=== PATIENT | female | born 1960 | race Caucasian/White ===

== ENCOUNTER → 2016-05-11 | Outpatient (CLI) | payer OTHER ==
--- NOTE | 2016-05-11 10:54 | MM ---
Reason for exam: screening (asymptomatic). Last mammogram was performed 1 year and 1 month ago. History: Patient is postmenopausal. Family history of breast cancer in maternal cousin at age 50, breast cancer in maternal aunt, and breast cancer in aunt. Taking estrogen for 6 years. Physical Findings: A clinical breast exam by your physician is recommended on an annual basis and results should be correlated with mammographic findings. MG 3D Screening Mammo W/Cad Bilateral CC and MLO view(s) were taken. Prior study comparison: March 31, 2015, bilateral MG 3d screening mammo w/cad. January 11, 2014, bilateral MG screening mammo w CAD. There are scattered fibroglandular densities. Finding: There are typically benign vascular calcifications in both breasts. Previous mammotome biopsy in the right breast. There is no discrete abnormality. ASSESSMENT: Benign, BI-RAD 2 RECOMMENDATION: Routine screening mammogram of both breasts in 1 year.
== END | disposition home or self-care (01) ==
LOC: RADMAMWWP 07:20
PROVIDERS: ATTEND Obstetrics & Gynecology
DX: Z12.31 Encounter for screening mammogram for malignant neoplasm of breast (principal)
CPT/HCPCS: 77063; G0202

== ENCOUNTER → 2016-07-09 | Outpatient (CLI) | payer OTHER ==
[2016-07-09 12:27] LABS: ALT 33 U/L (9-52); AST 34 U/L (14-36); Alkaline Phosphatase 64 U/L (38-126); Anion Gap 7 mmol/L; Blood Urea Nitrogen 20 mg/dL (7-17); Calcium 9.5 mg/dL (8.4-10.2); Carbon Dioxide 28 mmol/L (22-30); Chloride 104 mmol/L (98-107); Glucose 82 mg/dL (74-99); Magnesium 1.9 mg/dL (1.6-2.3); Non-African American GFR(MDRD) 56 (>60 ml/min/1.73 sqM); Phosphorous 3.5 mg/dL (2.5-4.5); Potassium 3.7 mmol/L (3.5-5.1); Sodium 139 mmol/L (137-145); Total Bilirubin 0.9 mg/dL (0.2-1.3); Total Protein 6.5 g/dL (6.3-8.2); Uric Acid 5.4 mg/dL (3.7-7.4)
== END ==
LOC: LABWHC1 11:14
PROVIDERS: ATTEND Internal Medicine
DX: N18.3 Chronic kidney disease, stage 3 (moderate) (principal); D64.9 Anemia, unspecified; E83.39 Other disorders of phosphorus metabolism; E55.9 Vitamin D deficiency, unspecified; M10.9 Gout, unspecified
CPT/HCPCS: 36415; 80053; 82306; 83735; 83970; 84100; 84550

== ENCOUNTER → 2016-12-27 | Outpatient (CLI) | payer OTHER ==
[2016-12-27 10:40] LABS: ALT 36 U/L (9-52); AST 28 U/L (14-36); Alkaline Phosphatase 108 U/L (38-126); Anion Gap 7 mmol/L; Blood Urea Nitrogen 13 mg/dL (7-17); Calcium 9.7 mg/dL (8.4-10.2); Carbon Dioxide 28 mmol/L (22-30); Chloride 104 mmol/L (98-107); Glucose 91 mg/dL (74-99); Magnesium 2.1 mg/dL (1.6-2.3); Non-African American GFR(MDRD) 58 (>60 ml/min/1.73 sqM); Phosphorus 3.3 mg/dL (2.5-4.5); Potassium 5.1 mmol/L (3.5-5.1); Sodium 139 mmol/L (137-145); Total Bilirubin 0.7 mg/dL (0.2-1.3); Total Protein 6.5 g/dL (6.3-8.2); Uric Acid 5.5 mg/dL (3.7-7.4)
== END | disposition home or self-care (01) ==
LOC: LABWHC1 09:47
PROVIDERS: ATTEND Internal Medicine
DX: N18.3 Chronic kidney disease, stage 3 (moderate) (principal); E21.3 Hyperparathyroidism, unspecified; E55.9 Vitamin D deficiency, unspecified; M10.9 Gout, unspecified
CPT/HCPCS: 36415; 80053; 82306; 83735; 83970; 84100; 84550

== ENCOUNTER → 2017-06-14 | Outpatient (CLI) | payer OTHER ==
--- NOTE | 2017-06-14 11:36 | BD ---
EXAMINATION TYPE: MG DEXA axial skeleton. DATE OF EXAM: 06/14/2017 COMPARISON: 2016 CLINICAL HISTORY: Osteoporosis screening. Postmenopausal female. Height: 5'7 Weight: 115 FRAX RISK QUESTIONS: Alcohol (3 or more units per day): no Family History (Parent hip fracture): no Glucocorticoids (More than 3mos): no (Ex: prednisone, prednisolone, methylprednisolone, dexamethasone, and hydrocortisone). History of Fracture in Adulthood: yes Secondary Osteoporosis: 1. Type 1 Diabetes: no 2. Hyperthyroidism: no 3. Menopause before 45: yes 4. Malnutrition: no 5. Chronic liver disease: no Rheumatoid Arthritis: no Current Tobacco Use: yes RISK FACTORS HISTORY OF: History of Wrist Fracture: left When: 21's age Surgery to /Hip(/left)/: total left hip When: 2017 Family History of Osteoporosis: y Diet low in dairy products/other sources of calcium: y Postmenopausal woman: y Take estrogen and/or progesterone medications: y How lon years MEDICATIONS: Additional Medications: asthma, cholesterol Additional History: EXAM MEASUREMENTS: Bone mineral densitometry was performed using the [employer]. Bone mineral density as measured about the Lumbar spine is: ----- L1-L4(G/cm2): 1.025 T Score Values are as follows: ----- L2: -1.9 ----- L3: -1.3 ----- L4: -1.0 ----- L1-L4: -1.3 Bone mineral density has: Decreased -1.9% since study of: 03/31/2015 Bone mineral density about the R hip (g/cm2): 0.812 T Score values are as follows: -----R Neck: -1.5 -----R Total: -1.3 Bone mineral density has: Increased 0.4% since study of: 03/31/2015 IMPRESSION: Osteopenia (T Score between -2.5 and -1). There is slightly increased risk of fracture and the patient may be considered for treatment. Re-Screen 2-5 years. NOTE: T-SCORE=SD OF THE YOUNG ADULT MEAN.
--- NOTE | 2017-06-15 12:49 | MM ---
Reason for exam: screening (asymptomatic). Last mammogram was performed 1 year and 1 month ago. History: Patient is postmenopausal. Family history of breast cancer in maternal cousin at age 50, breast cancer in maternal aunt, and breast cancer in aunt. Taking estrogen for 6 years. Physical Findings: A clinical breast exam by your physician is recommended on an annual basis and results should be correlated with mammographic findings. MG 3D Screening Mammo W/Cad Bilateral CC and MLO view(s) were taken. Prior study comparison: May 11, 2016, bilateral MG 3d screening mammo w/cad. March 31, 2015, bilateral MG 3d screening mammo w/cad. The breast tissue is heterogeneously dense. This may lower the sensitivity of mammography. Finding: There are typically benign vascular calcifications in both breasts. Previous mammotome biopsy in the right breast. There is no discrete abnormality. ASSESSMENT: Benign, BI-RAD 2 RECOMMENDATION: Routine screening mammogram of both breasts in 1 year.
== END | disposition home or self-care (01) ==
LOC: RADMAMWWP 09:35
PROVIDERS: ATTEND Obstetrics & Gynecology
DX: Z12.31 Encounter for screening mammogram for malignant neoplasm of breast (principal); M85.80 Other specified disorders of bone density and structure, unspecified site
CPT/HCPCS: 77063; 77067; 77080

== ENCOUNTER → 2017-06-24 | Outpatient (CLI) | payer OTHER ==
--- NOTE | 2017-06-24 08:28 | US ---
EXAMINATION TYPE: US extremity nonvasc mass LT DATE OF EXAM: 06/24/2017 COMPARISON: NONE CLINICAL HISTORY: M25.552 Pain in left pain. Patient had hip replacement 01-17-17 Since surgery she has a large area over her hip that is swollen and painful, no redness. There is a very small amount of fluid and edematous tissue. IMPRESSION: At the site of clinical concern left hip there is a small amount of fluid and edematous soft tissue.
== END ==
LOC: RADUSWWP 07:38
PROVIDERS: ATTEND Orthopaedic Surgery
DX: M79.89 Other specified soft tissue disorders (principal)

== ENCOUNTER 2017-07-11 09:09 | Day surgery (SDC) | payer OTHER ==
[2017-07-11 09:26] VITALS: BP 104/67; PULSE 66; RESP 20; TEMP 97.7
[2017-07-11] MEDS ORDERED: ALPRAZolam 0.5 MG TAB PO STA (09:26)
--- NOTE | 2017-07-11 11:36 | US ---
Ultrasound guided left hip aspiration Date: 07/11/2017 History: 56-year-old female with recurrent painful swelling lateral left hip after total arthroplasty . Procedure: 1. Ultrasound of the left hip soft tissues at the site of swelling. 2. Ultrasound-guided fluid aspiration. Technique: The procedure, risks, and alternatives, were discussed with the patient, who requested linda t we proceed. The consent form was signed, and teach-back occurred. The site/side of the procedure wa s marked with a line with participation by the patient. The accompanying paperwork was verified for c onsistency. A directed history and physical exam was performed prior to the procedure. Medication rec onciliation was performed by ancillary personnel. A critical pause was performed with assisting denny nava just prior to the procedure and the patient's identity was confirmed using 2 identifiers. Imagin g guidance was utilized to select the precise skin entry point just prior to the procedure, lateral l eft hip. FINDINGS: There is fluid measuring up to 4.5 cm long and 1.2 cm thick along the lateral facet of the greater tr ochanter. A sliver of fluid also seen within the subcutaneous fat more superficial in location in the deep subcutaneous fat. PROCEDURE: The patient was placed right decubitus. The lateral left hip was exposed, prepped and draped in the u sual sterile fashion and local 1% lidocaine anesthesia was instilled. Under ultrasound guidance, a 20 -gauge spinal needle was introduced into the left lateral fluid pocket. Ultrasound confirmed the posi tion of the needle tip. Under ultrasound surveillance, all of the fluid was aspirated yielding 5 mL o f serosanguineous aspirate. The needle was then removed. The patient tolerated the procedure well. There were no immediate complications. After the procedure, the patient's condition was unchanged. Es timated blood loss was minimal. IMPRESSION: 1. Successful aspiration of fluid pocket along the lateral left hip. The fluid pocket overlies the la teral facet of the left greater trochanter. 5 ml of serosanguineous aspirate was obtained and sent fo laboratory assessment. 2. Consider the possibility of a tear of the lateral insertional gluteus medius tendon.
[2017-07-11 14:35] LABS: Appearance,BF Bloody; Color,BF Red; Nucleated Cells, Body Fluid 222 /uL; RBC, Body Fluid 35300 /uL
[2017-07-11 14:42] LABS: Mononuclear WBC,Body Fluid 82 %; Polynuclear WBC,Body Fluid 18 %; Total Cells Counted,Body Fluid 100
== END 2017-07-11 11:00 | disposition home or self-care (01) ==
LOC: RADPROMAIN 09:09
PROVIDERS: ATTEND Orthopaedic Surgery
DX: M70.62 Trochanteric bursitis, left hip (principal); M25.452 Effusion, left hip; Z96.642 Presence of left artificial hip joint
CPT/HCPCS: 20611; 76942; 87070; 87075; 87205; 89050

== ENCOUNTER → 2017-07-14 | Outpatient (CLI) | payer OTHER ==
[2017-07-14 11:57] LABS: Appearance,Urine Clear (Clear); Bilirubin,Urine Negative (Negative); Blood,Urine Negative (Negative); Color,Urine Yellow; Glucose,Urine (UA) Negative (Negative); Ketones,Urine Negative (Negative); Leukocyte Esterase,Urine Negative (Negative); Nitrite,Urine Negative (Negative); PH, Urine 5.5 (5.0-8.0); Protein,Urine Negative (Negative); Specific Gravity,Urine 1.016 (1.001-1.035); Urobilinogen,Urine <2.0 mg/dL (<2.0)
[2017-07-14 11:59] LABS: HCT 36.4 % (34.0-46.0); HGB 11.7 gm/dL (11.4-16.0); MCH 31.2 pg (25.0-35.0); MCHC 32.1 g/dL (31.0-37.0); MCV 97.2 fL (80.0-100.0); Mean Platelet Volume 7.1; Platelet Count 240 k/uL (150-450); RBC 3.75 m/uL (3.80-5.40); RDW 13.6 % (11.5-15.5); WBC 4.8 k/uL (3.8-10.6)
[2017-07-14 12:32] LABS: Calcium 9.7 mg/dL (8.4-10.2); Magnesium 2.1 mg/dL (1.6-2.3); Phosphorus 3.4 mg/dL (2.5-4.5); Potassium 4.2 mmol/L (3.5-5.1); Total Bilirubin 0.7 mg/dL (0.2-1.3); Total Protein 6.1 g/dL (6.3-8.2); Uric Acid 4.2 mg/dL (3.7-7.4)
[2017-07-14 16:08] LABS: Iron Saturation 31.33 (12.00-45.00)
[2017-07-14 16:53] LABS: Parathyroid Hormone Intact 84.9 pg/mL (14.0-72.0)
== END | disposition home or self-care (01) ==
LOC: LABWHC1 11:30
PROVIDERS: ATTEND Internal Medicine
DX: N18.3 Chronic kidney disease, stage 3 (moderate) (principal); E21.3 Hyperparathyroidism, unspecified; E55.9 Vitamin D deficiency, unspecified; M10.9 Gout, unspecified; R80.9 Proteinuria, unspecified
CPT/HCPCS: 36415; 80053; 81003; 82306; 82728; 83540; 83550; 83735; 83970; 84100; 84550; 85027

== ENCOUNTER → 2018-02-06 | Outpatient (CLI) | payer OTHER ==
[2018-02-06 10:50] LABS: Basophils % (A) 0 %; Eosinophils % (A) 0 %; HCT 40.3 % (34.0-46.0); HGB 13.2 gm/dL (11.4-16.0); Lymphocytes # (A) 1.2 k/uL (1.0-4.8); Lymphocytes % (A) 25 %; MCH 32.9 pg (25.0-35.0); MCHC 32.8 g/dL (31.0-37.0); MCV 100.4 fL (80.0-100.0); Mean Platelet Volume 6.8; Monocytes # (A) 0.3 k/uL (0-1.0); Monocytes % (A) 5 %; Neutrophils # (A) 3.3 k/uL (1.3-7.7); Neutrophils % (A) 67 %; Platelet Count 249 k/uL (150-450); RBC 4.02 m/uL (3.80-5.40); RDW 12.2 % (11.5-15.5); WBC 4.9 k/uL (3.8-10.6)
[2018-02-06 13:18] LABS: Erythrocyte Sedimentation Rate 5 mm/hr (0-20)
[2018-02-06 16:44] LABS: Vitamin D 25 Hydroxy 35.5 ng/mL (30.0-100.0)
[2018-02-06 17:14] LABS: ALT 23 U/L (8-44); AST 32 U/L (13-35); Albumin/Globulin Ratio 2.65 (1.20-2.10); Alkaline Phosphatase 88 U/L (41-126); C Reactive Protein <0.4 mg/dL (0.0-0.8); Calcium 9.6 mg/dL (8.7-10.3); Carbon Dioxide 26.4 mmol/L (21.6-31.8); Chloride 106 mmol/L (96-109); Globulin 1.7 g/dL (2.1-3.7); Glucose 87 mg/dL (70-110); Sodium 141 mmol/L (135-145); Total Bilirubin 0.5 mg/dL (0.3-1.2); Total Protein 6.2 g/dL (6.2-8.2)
[2018-02-07 13:18] LABS: ANA Pattern See Footnote
== END | disposition home or self-care (01) ==
LOC: LABWHC1 09:54
PROVIDERS: ATTEND Nurse Practitioner Acute Care
DX: R53.83 Other fatigue (principal); E55.9 Vitamin D deficiency, unspecified; D64.9 Anemia, unspecified; E03.9 Hypothyroidism, unspecified
CPT/HCPCS: 36415; 80053; 82306; 82607; 84207; 84439; 84443; 84481; 85025; 85652; 86038; 86039; 86140

== ENCOUNTER → 2018-06-06 | Outpatient (CLI) | payer OTHER ==
[2018-06-06 12:53] LABS: Basophils % (A) 1 %; Eosinophils % (A) 1 %; HCT 41.1 % (34.0-46.0); HGB 13.2 gm/dL (11.4-16.0); Lymphocytes # (A) 1.1 k/uL (1.0-4.8); Lymphocytes % (A) 36 %; MCH 32.3 pg (25.0-35.0); MCV 101.1 fL (80.0-100.0); Mean Platelet Volume 6.8; Monocytes # (A) 0.2 k/uL (0-1.0); Monocytes % (A) 7 %; Neutrophils # (A) 1.7 k/uL (1.3-7.7); Neutrophils % (A) 54 %; Platelet Count 269 k/uL (150-450); RBC 4.07 m/uL (3.80-5.40); RDW 12.2 % (11.5-15.5); WBC 3.1 k/uL (3.8-10.6)
[2018-06-06 19:41] LABS: Iron Saturation 26.15 (12.00-45.00)
[2018-06-06 19:49] LABS: Vitamin D 25 Hydroxy 33.1 ng/mL (30.0-100.0)
[2018-06-06 19:55] LABS: Albumin 4.4 g/dL (3.80-4.90); Albumin/Globulin Ratio 2.32 (1.60-3.17); Anion Gap 6.9 mmol/L (4.00-12.00); Calcium 9.6 mg/dL (8.7-10.3); Carbon Dioxide 28.1 mmol/L (21.6-31.8); Globulin 1.9 g/dL (1.6-3.3); Magnesium 1.9 mg/dL (1.5-2.4); Phosphorus 3.8 mg/dL (2.4-5.1); Potassium 5.3 mmol/L (3.5-5.5); Total Bilirubin 0.4 mg/dL (0.3-1.2); Total Protein 6.3 g/dL (6.2-8.2); Uric Acid 4.6 mg/dL (2.9-7.7)
[2018-06-06 21:19] LABS: Parathyroid Hormone Intact 80.1 pg/mL (14.0-72.0)
== END | disposition home or self-care (01) ==
LOC: LABWHC1 11:33
PROVIDERS: ATTEND Nurse Practitioner Family
DX: L82.1 Other seborrheic keratosis (principal); D69.2 Other nonthrombocytopenic purpura; N18.3 Chronic kidney disease, stage 3 (moderate); D63.1 Anemia in chronic kidney disease; N25.81 Secondary hyperparathyroidism of renal origin; E55.9 Vitamin D deficiency, unspecified; M10.9 Gout, unspecified
CPT/HCPCS: 36415; 80053; 82306; 82728; 83540; 83550; 83735; 83970; 84100; 84550; 85025

== ENCOUNTER → 2018-06-28 | Outpatient (CLI) | payer OTHER ==
[2018-06-28 22:20] LABS: Albumin 4.4 g/dL (3.80-4.90); Albumin/Globulin Ratio 2.75 (1.60-3.17); Anion Gap 5.8 mmol/L (4.00-12.00); Calcium 9.6 mg/dL (8.7-10.3); Carbon Dioxide 30.2 mmol/L (21.6-31.8); Globulin 1.6 g/dL (1.6-3.3); Potassium 4.4 mmol/L (3.5-5.5); Total Bilirubin 0.6 mg/dL (0.2-1.2)
== END | disposition home or self-care (01) ==
LOC: LABWHC1 13:23
PROVIDERS: ATTEND Nurse Practitioner Family
DX: N18.3 Chronic kidney disease, stage 3 (moderate) (principal)
CPT/HCPCS: 36415; 80053

== ENCOUNTER → 2018-07-27 | Outpatient (CLI) | payer OTHER ==
--- NOTE | 2018-07-28 12:39 | MM ---
Reason for exam: screening (asymptomatic). Last mammogram was performed 1 year and 1 month ago. History: Patient is postmenopausal. Family history of breast cancer in maternal cousin at age 50, breast cancer in maternal aunt, and breast cancer in aunt. Taking estrogen for 7 years. Physical Findings: A clinical breast exam by your physician is recommended on an annual basis and results should be correlated with mammographic findings. MG 3D Screening Mammo W/Cad Bilateral CC and MLO view(s) were taken. Prior study comparison: June 14, 2017, bilateral MG 3d screening mammo w/cad. May 11, 2016, bilateral MG 3d screening mammo w/cad. The breast tissue is heterogeneously dense. This may lower the sensitivity of mammography. Previous mammotome biopsy in the right breast. No significant changes when compared with prior studies. ASSESSMENT: Negative, BI-RAD 1 RECOMMENDATION: Routine screening mammogram of both breasts in 1 year.
== END | disposition home or self-care (01) ==
LOC: RADMAMWWP 09:06
PROVIDERS: ATTEND Obstetrics & Gynecology
DX: Z12.31 Encounter for screening mammogram for malignant neoplasm of breast (principal); Z80.3 Family history of malignant neoplasm of breast
CPT/HCPCS: 77063; 77067

== ENCOUNTER 2018-08-18 09:11 | Day surgery (SDC) | payer OTHER ==
[2018-08-16 14:53] VITALS: BMI 18.0
[~2018-08-18 09:11] MED LIST: LACTATED RINGERS 1,000 ML IV SCH
[2018-08-18 09:24] VITALS: TEMP 96.6
[2018-08-18] MEDS ORDERED: PROPOFOL 10 MG/ML 20 ML VIAL IV ONE (09:51)
[2018-08-18] MEDS ORDERED: LIDOCAINE 1% INJ 10MG/ML (20 ML MDV) ONE (09:51)
--- NOTE | 2018-08-18 10:10 | P.PCN ---
Date of Procedure: 08/18/18 Procedure(s) Performed: BRIEF HISTORY: Patient is a 58-year-old pleasant white female scheduled for an elective colonoscopy as a part of screening for colorectal neoplasia. PROCEDURE PERFORMED: Colonoscopy. PREOPERATIVE DIAGNOSIS: Screening for colon cancer. IV sedation per Anesthesia. PROCEDURE: After informed consent was obtained, the patient, was brought into the endoscopy unit. IV sedation was administered by Anesthesia under continuous monitoring. Digital rectal examination was normal. Initially the Olympus CF-160 flexible video colonoscope was then inserted in the rectum, gradually advanced into the cecum without any difficulty. Careful examination was performed as the scope was gradually being withdrawn. Ileocecal valve and the appendiceal orifice were visualized and appeared normal. Prep was excellent. Mucosa of the cecum, ascending colon, transverse colon, descending colon, sigmoid colon, and rectum appeared normal. Retroflexion was performed in the rectum and no lesions were seen. The patient tolerated the procedure well. IMPRESSION: Normal-appearing colon from rectum to cecum with no evidence of colorectal neoplasia. RECOMMENDATIONS: Findings of this examination were discussed with the patient as well as a family. She was advised to have a repeat screening colonoscopy in 10 years.
[2018-08-18 11:02] VITALS: BP 127/85; PULSE 72; RESP 16
== END 2018-08-18 10:58 | disposition home or self-care (01) ==
LOC: ORWHC2ENDO 09:11
PROVIDERS: ATTEND Internal Medicine Gastroenterology
DX: Z12.11 Encounter for screening for malignant neoplasm of colon (principal); Z79.890 Hormone replacement therapy; Z79.899 Other long term (current) drug therapy; E78.5 Hyperlipidemia, unspecified; J45.909 Unspecified asthma, uncomplicated; F17.200 Nicotine dependence, unspecified, uncomplicated; F39 Unspecified mood [affective] disorder
CPT/HCPCS: J2001; J2704; G0121

== ENCOUNTER → 2018-11-08 | Outpatient (CLI) | payer OTHER ==
[2018-11-08 11:15] LABS: HCT 37.2 % (34.0-46.0); HGB 12.2 gm/dL (11.4-16.0); MCH 34.9 pg (25.0-35.0); MCHC 32.7 g/dL (31.0-37.0); MCV 106.6 fL (80.0-100.0); Macrocytosis Moderate; Platelet Count 270 k/uL (150-450); RBC 3.49 m/uL (3.80-5.40); RDW 13.8 % (11.5-15.5); WBC 5.5 k/uL (3.8-10.6)
[2018-11-08 15:23] LABS: Vitamin D 25 Hydroxy 39.8 ng/mL (30.0-100.0)
[2018-11-08 15:46] LABS: Iron Saturation 41.08 (12.00-45.00)
[2018-11-08 16:26] LABS: Phosphorus 3.8 mg/dL (2.4-5.1)
[2018-11-08 16:27] LABS: African American GFR (CKD) 72.4 (60.0-200.0); Albumin 4.2 g/dL (3.80-4.90); Albumin/Globulin Ratio 2.47 (1.60-3.17); Calcium 9.4 mg/dL (8.7-10.3); Globulin 1.7 g/dL (1.6-3.3); Potassium 5.1 mmol/L (3.5-5.5); Total Bilirubin 0.5 mg/dL (0.3-1.2); Total Protein 5.9 g/dL (6.2-8.2); Uric Acid 4.3 mg/dL (2.9-7.7)
== END | disposition home or self-care (01) ==
LOC: LABWHC1 10:32
PROVIDERS: ATTEND Nurse Practitioner Family
DX: N25.81 Secondary hyperparathyroidism of renal origin (principal); E55.9 Vitamin D deficiency, unspecified; M10.9 Gout, unspecified; D63.1 Anemia in chronic kidney disease; N18.3 Chronic kidney disease, stage 3 (moderate)
CPT/HCPCS: 36415; 80053; 82306; 82728; 83540; 83550; 83735; 83970; 84100; 84550; 85027

== ENCOUNTER → 2018-11-30 | Outpatient (CLI) | payer OTHER ==
--- NOTE | 2018-11-30 10:03 | US ---
EXAMINATION TYPE: US kidneys/renal and bladder DATE OF EXAM: 11/30/2018 COMPARISON: US 2014, CT 2018 CLINICAL HISTORY: N18.3 STAGE III CKD. EXAM MEASUREMENTS: Right Kidney: 10.3 x 4.4 x 3.5 cm Left Kidney: 10.1 x 4.7 x 4.0 cm Post Void Residual Volume: 6.6 mL Right Kidney: No hydronephrosis or masses seen Left Kidney: No hydronephrosis or masses seen Bladder: wnl Bilateral Jets seen: Yes Normal Post Void Residual: Yes Bilateral cortical renal thinning is seen. This is greater on the right than left. There is no eviden ce for hydronephrosis at this point in time. No nephrolithiasis is seen. No masses are identified. The urinary bladder is anechoic. Bilateral ureteral jets are seen. Sub optimal visualization due to very thin body habitus. IMPRESSION: Cortical renal thinning, sequela of chronic medical renal disease greater on the right than left. No hydronephrosis or nephrolithiasis of either kidney.
== END | disposition home or self-care (01) ==
LOC: RADUSWWP 09:27
PROVIDERS: ATTEND Internal Medicine Nephrology
DX: N28.89 Other specified disorders of kidney and ureter (principal); N18.3 Chronic kidney disease, stage 3 (moderate)
CPT/HCPCS: 76770

== ENCOUNTER 2018-12-25 11:05 | Emergency (ER) | payer OTHER ==
[2018-12-25] MEDS ORDERED: IPRATROPIUM-ALBUTEROL 3 ML NEB INHALATION STA (11:31)
--- NOTE | 2018-12-25 11:33 | ED ---
URI HPI - General Chief Complaint: Upper Respiratory Infection Stated Complaint: fever/cough Time Seen by Provider: 12/25/18 11:19 Source: patient, RN notes reviewed Mode of arrival: ambulatory Limitations: no limitations - History of Present Illness Initial Comments: 58-year-old female presents emergency Department chief complaint cough congestion prescriptions Tuesday. Patient states that he shape progressively gets worsen. She has been taken Tylenol for suspected fever at home. Patient also was taken some NyQuil. Patient does have underlying asthma states that she does hear large amount of respiratory infection secondary to underlying lung disease. Patient does see Dr. Reed. Patient unable to see him in his office. She has not used her nebulizer. Denies any chest pain or palpitations. - Related Data Home Medications Medication Instructions Recorded Confirmed Atorvastatin [Lipitor] 20 mg PO HS 06/30/17 12/25/18 DULoxetine HCL [Cymbalta] 60 mg PO DAILY 06/30/17 12/25/18 Montelukast Sodium [Singulair] 10 mg PO HS 06/30/17 12/25/18 Calcitriol [Rocaltrol] 0.25 mcg PO MOTH 08/16/18 12/25/18 Folic Acid 0.4 mg PO DAILY 08/16/18 12/25/18 Acetaminophen Tab [Tylenol Tab] 1,000 mg PO Q6HR PRN 12/25/18 12/25/18 Estradiol 0.5 mg PO DAILY 12/25/18 12/25/18 Meloxicam [Mobic] 7.5 mg PO DAILY 12/25/18 12/25/18 Previous Rx's Medication Instructions Recorded Albuterol Nebulized [Ventolin 2.5 mg INHALATION Q4H PRN #25 nebu 12/25/18 Nebulized] Azithromycin [Zithromax Z-pack] 0 mg PO DIRECTED #1 pack 12/25/18 predniSONE 50 mg PO DAILY #5 tab 12/25/18 Allergies Allergy/AdvReac Type Severity Reaction Status Date / Time No Known Allergies Allergy Verified 12/25/18 11:26 Review of Systems ROS Statement: Those systems with pertinent positive or pertinent negative responses have been documented in the HPI. ROS Other: All systems not noted in ROS Statement are negative. Past Medical History Past Medical History: Asthma, Hyperlipidemia, Osteoarthritis (OA) Additional Past Medical History / Comment(s): Hx osteopenia/ Hx. and at present adrenal insufficiency, neuropathy History of Any Multi-Drug Resistant Organisms: MRSA Date of last positivie culture/infection: 2013 and rsv pneumonia/ chronic bronchitis MDRO Source:: lungs Past Surgical History: Breast Surgery, Hysterectomy, Joint Replacement, Orthopedic Surgery Additional Past Surgical History / Comment(s): Hx. bilat arthroscopic knees x 2 left hip repair x 2, and left shoulder Hx. breast biopsy rt and lumpectomy- negative, LT BURTON, COLONOSCOPY Past Anesthesia/Blood Transfusion Reactions: Postoperative Nausea & Vomiting (PONV) Past Psychological History: No Psychological Hx Reported Smoking Status: Current some day smoker Past Alcohol Use History: Occasional Past Drug Use History: None Reported - Past Family History Father Family Medical History: Cancer General Exam Limitations: no limitations General appearance: alert, in no apparent distress Head exam: Present: atraumatic, normocephalic, normal inspection Eye exam: Present: normal appearance, PERRL, EOMI. Absent: scleral icterus, conjunctival injection, periorbital swelling ENT exam: Present: normal exam, normal oropharynx, mucous membranes moist, TM's normal bilaterally Neck exam: Present: normal inspection. Absent: tenderness, meningismus, lymphadenopathy Respiratory exam: Present: wheezes, rhonchi. Absent: normal lung sounds bilaterally, respiratory distress, rales, stridor Cardiovascular Exam: Present: regular rate, normal rhythm, normal heart sounds. Absent: systolic murmur, diastolic murmur, rubs, gallop, clicks Neurological exam: Present: alert Skin exam: Present: warm, dry, intact, normal color. Absent: rash Course Vital Signs 12/25/18 12/25/18 12/25/18 11:07 12:26 12:36 Temperature 97.9 F Pulse Rate 92 92 88 Respiratory 18 Rate Blood Pressure 126/86 O2 Sat by Pulse 100 Oximetry 12/25/18 12:42 Temperature 99.1 F Pulse Rate 89 Respiratory 22 Rate Blood Pressure 110/84 O2 Sat by Pulse 100 Oximetry Medical Decision Making - Medical Decision Making 58-year-old female presented emergency 5 for fever cough congestion. Chest x- ray shows possible bronchitis. There is no evidence pneumonia informed negative. Patient feels comfortable discharged with antibiotics, steroids and albuterol use. Patient follow-up with her own oncologist Dr. Cabezas return parameters were discussed. - Lab Data Lab Results 12/25/18 Range/Units 12:35 Influenza Type A RNA Not Detected (Not Detectd) Influenza Type B (PCR) Not Detected (Not Detectd) Disposition Clinical Impression: Bronchitis Disposition: HOME SELF-CARE Condition: Stable Instructions (If sedation given, give patient instructions): Upper Respiratory Infection (ED) Additional Instructions: Please return to the Emergency Department if symptoms worsen or any other concerns. Prescriptions: predniSONE 50 mg PO DAILY #5 tab Albuterol Nebulized [Ventolin Nebulized] 2.5 mg INHALATION Q4H PRN #25 nebu PRN Reason: difficulty in breathing Azithromycin [Zithromax Z-pack] 0 mg PO DIRECTED #1 pack Is patient prescribed a controlled substance at d/c from ED?: No Referrals: Dolly Holguin DO [Primary Care Provider] - 1-2 days Time of Disposition: 13:13
--- NOTE | 2018-12-25 11:59 | XR ---
EXAMINATION TYPE: XR chest 2V DATE OF EXAM: 12/25/2018 COMPARISON: 05/17/2013 HISTORY: Cough TECHNIQUE: Frontal and lateral views of the chest are obtained. FINDINGS: There is no focal air space opacity, pleural effusion, or pneumothorax seen. There is pulm onary hyperinflation present. Very mild central peribronchial cuffing is seen comminuted from the alireza or The cardiac silhouette size is within normal limits. The osseous structures are intact. IMPRESSION: New peribronchial cuffing in the setting of underlying COPD. Infectious airway disease i s suspected such as bronchitis.
[2018-12-25] MEDS ORDERED: IBUPROFEN 600 MG TAB PO STA (13:28)
[2018-12-25] MEDS ORDERED: ACETAMINOPHEN TAB 325 MG TAB PO STA (13:28)
[2018-12-25 13:35] VITALS: BP 110/78; PULSE 88; RESP 20; TEMP 99
== END 2018-12-25 13:33 | disposition home or self-care (01) ==
LOC: EC 11:05
DX: J45.909 Unspecified asthma, uncomplicated (principal); E78.5 Hyperlipidemia, unspecified; M19.90 Unspecified osteoarthritis, unspecified site; G62.9 Polyneuropathy, unspecified; F17.200 Nicotine dependence, unspecified, uncomplicated; Z86.14 Personal history of Methicillin resistant Staphylococcus aureus infection; Z87.01 Personal history of pneumonia (recurrent); Z90.710 Acquired absence of both cervix and uterus; Z96.642 Presence of left artificial hip joint; Z98.890 Other specified postprocedural states; Z79.1 Long term (current) use of non-steroidal anti-inflammatories (NSAID); Z79.899 Other long term (current) drug therapy
CPT/HCPCS: 71046; 87502; 94640; 99284

== ENCOUNTER → 2019-05-02 | Outpatient (CLI) | payer OTHER ==
[2019-05-02 13:21] LABS: Basophils # (A) 0.1 k/uL (0-0.2); Basophils % (A) 2 %; Eosinophils % (A) 1 %; HCT 41.4 % (34.0-46.0); HGB 13.1 gm/dL (11.4-16.0); Lymphocytes # (A) 1.3 k/uL (1.0-4.8); Lymphocytes % (A) 32 %; MCH 32.3 pg (25.0-35.0); MCHC 31.5 g/dL (31.0-37.0); MCV 102.4 fL (80.0-100.0); Mean Platelet Volume 8.1; Monocytes # (A) 0.3 k/uL (0-1.0); Monocytes % (A) 7 %; Neutrophils # (A) 2.3 k/uL (1.3-7.7); Neutrophils % (A) 57 %; Platelet Count 301 k/uL (150-450); RBC 4.05 m/uL (3.80-5.40); RDW 11.7 % (11.5-15.5)
[2019-05-02 13:26] LABS: Appearance,Urine Clear (Clear); Bilirubin,Urine Negative (Negative); Blood,Urine Negative (Negative); Color,Urine Yellow; Glucose,Urine (UA) Negative (Negative); Ketones,Urine Negative (Negative); Leukocyte Esterase,Urine Negative (Negative); Nitrite,Urine Negative (Negative); Protein,Urine Negative (Negative); Specific Gravity,Urine 1.021 (1.001-1.035); Urobilinogen,Urine <2.0 mg/dL (<2.0)
[2019-05-02 18:56] LABS: Ferritin 29.7 ng/mL (10.0-291.0)
[2019-05-02 19:22] LABS: % Iron Saturation 19.94 (12.00-45.00); African American GFR (CKD) 82.3 (60.0-200.0); Albumin 4.4 g/dL (3.80-4.90); Albumin/Globulin Ratio 2.44 (1.60-3.17); Anion Gap 11.1 mmol/L (4.00-12.00); Calcium 9.4 mg/dL (8.7-10.3); Carbon Dioxide 24.9 mmol/L (21.6-31.8); Globulin 1.8 g/dL (1.6-3.3); Magnesium 1.8 mg/dL (1.5-2.4); Phosphorus 4.3 mg/dL (2.4-5.1); Potassium 4.7 mmol/L (3.5-5.5); Total Bilirubin 0.3 mg/dL (0.2-1.2); Total Protein 6.2 g/dL (6.2-8.2); Uric Acid 3.4 mg/dL (2.9-7.7)
== END | disposition home or self-care (01) ==
LOC: LABWHC1 11:57
PROVIDERS: ATTEND Nurse Practitioner Family
DX: N18.3 Chronic kidney disease, stage 3 (moderate) (principal); D63.1 Anemia in chronic kidney disease; M10.9 Gout, unspecified; N39.0 Urinary tract infection, site not specified; N25.81 Secondary hyperparathyroidism of renal origin
CPT/HCPCS: 36415; 80053; 81003; 82306; 82728; 83540; 83550; 83735; 83970; 84100; 84550; 85025

== ENCOUNTER → 2019-09-07 | Outpatient (CLI) | payer OTHER ==
[2019-09-07 12:49] LABS: Appearance,Urine Clear (Clear); Bilirubin,Urine Negative (Negative); Blood,Urine Negative (Negative); Color,Urine Yellow; Glucose,Urine (UA) Negative (Negative); Ketones,Urine 1+ (Negative); Leukocyte Esterase,Urine Negative (Negative); Nitrite,Urine Negative (Negative); PH, Urine 5.5 (5.0-8.0); Protein,Urine Trace (Negative)
[2019-09-07 12:57] LABS: Basophils % (A) 1 %; Eosinophils # (A) 0.1 k/uL (0-0.7); Eosinophils % (A) 1 %; HCT 38.2 % (34.0-46.0); HGB 12.2 gm/dL (11.4-16.0); Lymphocytes # (A) 1.2 k/uL (1.0-4.8); Lymphocytes % (A) 27 %; MCH 32.6 pg (25.0-35.0); MCV 101.8 fL (80.0-100.0); Mean Platelet Volume 7.5; Monocytes # (A) 0.3 k/uL (0-1.0); Monocytes % (A) 6 %; Neutrophils # (A) 2.8 k/uL (1.3-7.7); Neutrophils % (A) 64 %; Platelet Count 222 k/uL (150-450); RBC 3.75 m/uL (3.80-5.40); RDW 12.3 % (11.5-15.5); WBC 4.4 k/uL (3.8-10.6)
[2019-09-07 18:48] LABS: % Iron Saturation 27.76 (12.00-45.00); African American GFR (CKD) 47.9 (60.0-200.0); Albumin 4.3 g/dL (3.80-4.90); Albumin/Globulin Ratio 2.39 (1.60-3.17); Anion Gap 9.2 mmol/L (4.00-12.00); BUN/Creat Ratio 12.14 Ratio (12.00-20.00); Calcium 9.7 mg/dL (8.7-10.3); Carbon Dioxide 24.8 mmol/L (21.6-31.8); Globulin 1.8 g/dL (1.6-3.3); Magnesium 1.7 mg/dL (1.5-2.4); Non-African American GFR(CKD) 41.3 (60.0-200.0); Phosphorus 4.2 mg/dL (2.4-5.1); Potassium 4.5 mmol/L (3.5-5.5); Total Bilirubin 0.5 mg/dL (0.3-1.2); Total Protein 6.1 g/dL (6.2-8.2)
[2019-09-07 18:57] LABS: Ferritin 25.3 ng/mL (10.0-291.0)
== END | disposition home or self-care (01) ==
LOC: LABWHC1 11:53
PROVIDERS: ATTEND Nurse Practitioner Family
DX: N18.3 Chronic kidney disease, stage 3 (moderate) (principal); N39.0 Urinary tract infection, site not specified; M10.9 Gout, unspecified; D63.1 Anemia in chronic kidney disease
CPT/HCPCS: 36415; 80053; 81003; 82306; 82728; 83540; 83550; 83735; 83970; 84100; 84550; 85025

== ENCOUNTER → 2019-11-13 | Outpatient (CLI) | payer OTHER ==
[2019-11-13 12:41] LABS: HCT 38.7 % (34.0-46.0); HGB 12.2 gm/dL (11.4-16.0); MCH 32.4 pg (25.0-35.0); MCHC 31.4 g/dL (31.0-37.0); MCV 103.1 fL (80.0-100.0); Macrocytosis Slight; Mean Platelet Volume 7.3; Platelet Count 229 k/uL (150-450); RBC 3.75 m/uL (3.80-5.40); RDW 12.3 % (11.5-15.5); WBC 4.4 k/uL (3.8-10.6)
[2019-11-13 13:18] LABS: Creatinine,Urine Random 56.4 mg/dL; Protein/Creatinine Ratio,Urine 0.16
[2019-11-13 13:52] LABS: Appearance,Urine Clear (Clear); Bilirubin,Urine Negative (Negative); Blood,Urine Negative (Negative); Color,Urine Yellow; Glucose,Urine (UA) Negative (Negative); Ketones,Urine Negative (Negative); Leukocyte Esterase,Urine Negative (Negative); Nitrite,Urine Negative (Negative); PH, Urine 5.5 (5.0-8.0); Protein,Urine Negative (Negative); Specific Gravity,Urine 1.009 (1.001-1.035); Urobilinogen,Urine <2.0 mg/dL (<2.0)
[2019-11-13 18:16] LABS: % Iron Saturation 39.81 (12.00-45.00); Magnesium 1.6 mg/dL (1.5-2.4); Phosphorus 3.7 mg/dL (2.4-5.1); Uric Acid 5.1 mg/dL (2.9-7.7)
[2019-11-13 18:24] LABS: Ferritin 34.8 ng/mL (10.0-291.0)
== END | disposition home or self-care (01) ==
LOC: LABWHC1 11:05
PROVIDERS: ATTEND Internal Medicine
DX: D63.1 Anemia in chronic kidney disease (principal); N18.3 Chronic kidney disease, stage 3 (moderate); E55.9 Vitamin D deficiency, unspecified; M10.9 Gout, unspecified; R80.9 Proteinuria, unspecified; N39.0 Urinary tract infection, site not specified; N25.81 Secondary hyperparathyroidism of renal origin
CPT/HCPCS: 36415; 81003; 82306; 82570; 82728; 83540; 83550; 83735; 83970; 84100; 84156; 84550; 85027

== ENCOUNTER → 2019-11-20 | Outpatient (CLI) | payer OTHER ==
[2019-11-20 17:15] LABS: African American GFR (CKD) 71.9 (60.0-200.0); Anion Gap 7.1 mmol/L (4.00-12.00); Calcium 9.5 mg/dL (8.7-10.3); Carbon Dioxide 28.9 mmol/L (21.6-31.8); Non-African American GFR(CKD) 62.1 (60.0-200.0)
== END | disposition home or self-care (01) ==
LOC: LABWHC1 09:15
PROVIDERS: ATTEND Internal Medicine
DX: N18.3 Chronic kidney disease, stage 3 (moderate) (principal)
CPT/HCPCS: 36415; 80048

== ENCOUNTER → 2019-12-07 | Outpatient (CLI) | payer OTHER ==
--- NOTE | 2019-12-07 13:01 | BD ---
EXAMINATION TYPE: Axial Bone Density DATE OF EXAM: 12/07/2019 COMPARISON: 06.14.2017 CLINICAL HISTORY: 59 YR OLD FEMALE......ICD-10 CODE: N85.80 DISORDER OF BONE DENSITY Height: 66.3 Weight: 125 FRAX RISK QUESTIONS: Family History (Parent hip fracture): Glucocorticoids (More than 3mos): YES (Ex: prednisone, prednisolone, methylprednisolone, dexamethasone, and hydrocortisone). History of Fracture in Adulthood: YES Secondary Osteoporosis: YES 1 3. Menopause before 45: YES, AT 41 Current Tobacco Use: YES RISK FACTORS HISTORY OF: History of Wrist Fracture: LT WRIST FX YOUNG ADULT....BILT CARPAL GÓMEZ SURG. HX OF MANY METATARSAL FX AND RT FOOT FX...>40 YRS OLD Family History of Osteoporosis: YES, MOTHER NO HIP FX Active: YES Postmenopausal woman: SLICK, AT 41 YRS OLD Take estrogen and/or progesterone medications: YES, ESTRADIOL, Lost more than 2 inches in height since high school: YES Hyperparathyroidism: NO Adrenal Insufficiency: YES, IN THE PAST, MAJOR DOSES OF STEROIDS MEDICATIONS: Prednisone or other steroids: IN THE PAST MAJOR DOSE, ON AND OFF NOW Additional Medications: STATIN FOR CHOLESTEROL, VIT D, Additional History: SPINAL ABLATION, FOR NERVES, BILAT CARPAL TUNNEL, BILAT THUMB REPLACEMENTS, STAGE 3 KIDNEY DISEASE, ASTHMA....LT HIP REPLACEMENT EXAM MEASUREMENTS: Bone mineral densitometry was performed using the [employer]. Bone mineral density as measured about the Lumbar spine is: ----- L1-L4(G/cm2): 1.047 T Score Values are as follows: ----- L1: -0.9 ----- L2: -1.9 ----- L3: -1.4 ----- L4: -0.5 ----- L1-L4: -1.1 Bone mineral density has: Increased 1.4% since study of: 06.14.2017 Bone mineral density about the R hip (g/cm2): 0.823 T Score values are as follows: -----R Neck: -1.3 -----R Total: -1.5 Bone mineral density has: Decreased -2.0% since study of: 06.14.2017 FRAX%s: THERE IS A 17.2% CHANCE FOR A MAJOR OSTEOPOROTIC FX AND A 2.7% FOR HIP....PROBABILITY FOR F X IN 10 YRS TIME IMPRESSION: Osteopenia (T Score between -2.5 and -1). There is slightly increased risk of fracture and the patient may be considered for treatment. Re-Screen 2-5 years. NOTE: T-SCORE=SD OF THE YOUNG ADULT MEAN.
--- NOTE | 2019-12-10 09:30 | MM ---
Reason for exam: screening (asymptomatic). Last mammogram was performed 1 year and 4 months ago. History: Patient is postmenopausal. Family history of breast cancer in maternal cousin at age 50, breast cancer in maternal aunt, and breast cancer in aunt. Benign excisional biopsy of the right breast, 2006. Taking estrogen for 7 years. Physical Findings: A clinical breast exam by your physician is recommended on an annual basis and results should be correlated with mammographic findings. MG 3D Screening Mammo W/Cad Bilateral CC and MLO view(s) were taken. Prior study comparison: July 27, 2018, bilateral MG 3d screening mammo w/cad. June 14, 2017, bilateral MG 3d screening mammo w/cad. The breast tissue is heterogeneously dense. This may lower the sensitivity of mammography. There are benign appearing vascular calcifications bilaterally. Previous mammotome biopsy in the right breast. There is no discrete abnormality. ASSESSMENT: Benign, BI-RAD 2 RECOMMENDATION: Routine screening mammogram of both breasts in 1 year.
== END | disposition home or self-care (01) ==
LOC: RADMAMWWP 07:30
PROVIDERS: ATTEND Obstetrics & Gynecology
DX: Z12.31 Encounter for screening mammogram for malignant neoplasm of breast (principal); M85.80 Other specified disorders of bone density and structure, unspecified site
CPT/HCPCS: 77063; 77067; 77080

== ENCOUNTER → 2019-12-31 | Outpatient (CLI) | payer OTHER ==
--- NOTE | 2019-12-31 11:30 | US ---
EXAMINATION TYPE: US kidneys/renal and bladder DATE OF EXAM: 12/31/2019 COMPARISON: Ultrasound 11/30/2018 CLINICAL HISTORY: N18.3 CKD. Stage 3 EXAM MEASUREMENTS: Right Kidney: 10.7 x 5.2 x 3.3 cm Left Kidney: 9.1 x 5.0 x 4.3 cm Post Void Residual Volume: 7.3 mL Right Kidney: mid lateral hypoechoic lesion = 0.5 x 0.7 x 0.5cm Left Kidney: vascular wall calcifications note especially upper pole Bladder: partially distended Bilateral Jets seen: no, only left jet was seen within 3 minute observation. Normal Post Void Residual: yes No hydronephrosis or nephrolithiasis. Cortical thickness is stable from prior exam. IMPRESSION: 1. No hydronephrosis or nephrolithiasis. Hypodensity within the right kidney is too small to characte ridennis but statistically most likely related to a cyst.
== END | disposition home or self-care (01) ==
LOC: RADUSWWP 09:04
PROVIDERS: ATTEND Internal Medicine Nephrology
DX: N18.3 Chronic kidney disease, stage 3 (moderate) (principal)
CPT/HCPCS: 76770

== ENCOUNTER 2020-05-24 22:22 | Emergency (ER) | payer OTHER ==
[2020-05-24 22:27] VITALS: BP 137/82; PULSE 74; RESP 20; TEMP 98
--- NOTE | 2020-05-24 23:43 | XR ---
EXAMINATION TYPE: XR lumbar spine 1V DATE OF EXAM: 05/24/2020 COMPARISON: NONE HISTORY: Fall. Pain. TECHNIQUE: Single view FINDINGS: A single frontal view shows normal alignment of the vertebra. Disc spaces are fairly normal . I see no compression fracture. Sacroiliac joints are intact. IMPRESSION: Negative limited lumbar spine exam.
--- NOTE | 2020-05-24 23:44 | XR ---
EXAMINATION TYPE: XR chest 1V DATE OF EXAM: 05/24/2020 COMPARISON: December 27, 2018 HISTORY: Fall. Chest pain TECHNIQUE: FINDINGS: Heart and mediastinum are normal. Lungs are clear. There is no pleural effusion or pneumoth orax. The bony thorax is intact. IMPRESSION: Normal chest. No change.
--- NOTE | 2020-05-24 23:47 | XR ---
EXAMINATION TYPE: XR pelvis AP view DATE OF EXAM: 05/24/2020 COMPARISON: NONE HISTORY: Pain TECHNIQUE: Fall. Pain. FINDINGS: Pelvic ring is intact. The proximal right femur and hip joint are intact. There is left hip prosthesis in good position. Sacroiliac joints are intact. IMPRESSION: Negative exam. No fracture seen.
--- NOTE | 2020-05-24 23:54 | CT ---
EXAMINATION TYPE: CT brain [place] wo con DATE OF EXAM: 05/24/2020 COMPARISON: CT brain 11/28/2014. HISTORY: Fall CT DLP: 1094.5 mGycm Automated exposure control for dose reduction was used. Ventricles have normal size. There is no mass effect nor midline shift. There is no sign of intracran ial hemorrhage. The calvarium is intact. Skull base is intact. There is right frontal scalp soft tiss ue swelling. There is soft tissue swelling lateral to the right bony orbit. The cervical vertebra show fairly normal spacing and alignment. Posterior elements are intact. Facet joints are intact. There is minimal spurring at C5-6 endplates. The skull base is normal. There is no rmal aeration of the mastoid sinuses. IMPRESSION: Negative CT scan of the cervical spine. No fracture. Negative CT scan of the brain. Brain unchanged compared to old exam. Right side frontal and periorbital scalp soft tissue swelling.
[2020-05-24] MEDS ORDERED: IBUPROFEN 800 MG TAB PO STA (23:55)
[2020-05-24] MEDS ORDERED: ACET/COD 300 MG/30 MG STARTER PACK 6 TAB BTL PO STA (23:55)
[2020-05-24] MEDS ORDERED: Acetaminophen-Codeine 300-30mg TAB PO STA (23:55)
[2020-05-24] MEDS ORDERED: IBUPROFEN 600 MG STARTER PACK 4 TAB BTL PO STA (23:55)
--- NOTE | 2020-05-24 23:57 | CT ---
EXAMINATION TYPE: CT facial bones wo con DATE OF EXAM: 05/24/2020 COMPARISON: None HISTORY: Fall CT DLP: 1094.5 mGycm Automated exposure control for dose reduction was used. Images obtained from the bottom of the mandible to the top of the frontal sinuses without contrast. The mandibular ring is intact. Temporomandibular joints are intact. Zygomatic arches appear normal. T he maxilla is intact. There is normal appearing nasal bone. There is no evidence of retro-orbital mas s. There is normal aeration of the mastoid sinuses. There is no evidence of orbital blowout fracture. There is soft tissue swelling lateral to the right bony orbit. There is right frontal scalp soft tiss ue swelling. The globes are symmetric. I see no bony destructive process. IMPRESSION: No fracture. Right-sided soft tissue swelling as above.
--- NOTE | 2020-05-25 | ED ---
Fall HPI - General Chief Complaint: Fall Stated Complaint: Fall, head injury Time Seen by Provider: 05/24/20 22:35 Source: patient, RN notes reviewed, old records reviewed Mode of arrival: ambulatory - History of Present Illness Initial Comments: this is a 51-year-old female status post trip and fall but no significant trauma noted. Patient is no recent travel history or sick contacts. Patient believes fall was mechanical in nature with trip and fall, complaining of some headache no chest pain shortness of breath or abdominal pain currently. MD Complaint: fall -: hour(s) Fall From: standing When Fall Occurred: unsure Fall Witnessed: no Place Fall Occurred: home Loss of Consciousness: none Prolonged Down Time?: no Symptoms Prior to Fall: none Location: head Severity: moderate Severity scale (1-10): 5 Quality: burning Context: tripped/slipped Associated Symptoms: denies - Related Data Home Medications Medication Instructions Recorded Confirmed Atorvastatin [Lipitor] 20 mg PO HS 06/30/17 12/25/18 DULoxetine HCL [Cymbalta] 60 mg PO DAILY 06/30/17 12/25/18 Montelukast Sodium [Singulair] 10 mg PO HS 06/30/17 12/25/18 Folic Acid 0.4 mg PO DAILY 08/16/18 12/25/18 calcitrioL [Rocaltrol] 0.25 mcg PO MOTH 08/16/18 12/25/18 Acetaminophen Tab [Tylenol Tab] 1,000 mg PO Q6HR PRN 12/25/18 12/25/18 Estradiol 0.5 mg PO DAILY 12/25/18 12/25/18 Meloxicam [Mobic] 7.5 mg PO DAILY 12/25/18 12/25/18 Previous Rx's Medication Instructions Recorded Albuterol Nebulized [Ventolin 2.5 mg INHALATION Q4H PRN #25 nebu 12/25/18 Nebulized] Azithromycin [Zithromax Z-pack (6 0 mg PO DIRECTED #1 pack 12/25/18 tabs)] predniSONE 50 mg PO DAILY #5 tab 12/25/18 HYDROcodone/APAP 5-325MG [Johnston 1 tab PO Q6HR PRN 3 Days #12 tab 05/25/20 5-325] Allergies Allergy/AdvReac Type Severity Reaction Status Date / Time No Known Allergies Allergy Verified 05/24/20 22:27 Review of Systems ROS Statement: Those systems with pertinent positive or pertinent negative responses have been documented in the HPI. ROS Other: All systems not noted in ROS Statement are negative. Past Medical History Past Medical History: Asthma, Hyperlipidemia, Osteoarthritis (OA) Additional Past Medical History / Comment(s): Hx osteopenia/ Hx. and at present adrenal insufficiency, neuropathy History of Any Multi-Drug Resistant Organisms: MRSA Date of last positivie culture/infection: 2013 and rsv pneumonia/ chronic bronchitis MDRO Source:: lungs Past Surgical History: Breast Surgery, Hysterectomy, Joint Replacement, Orthopedic Surgery Additional Past Surgical History / Comment(s): Hx. bilat arthroscopic knees x 2 left hip repair x 2, and left shoulder Hx. breast biopsy rt and lumpectomy- negative, LT BURTON, COLONOSCOPY Past Anesthesia/Blood Transfusion Reactions: Postoperative Nausea & Vomiting (PONV) Past Psychological History: No Psychological Hx Reported Smoking Status: Current every day smoker Past Alcohol Use History: Occasional Past Drug Use History: None Reported - Past Family History Father Family Medical History: Cancer General Exam Limitations: no limitations General appearance: alert, in no apparent distress Head exam: Present: atraumatic, normocephalic, normal inspection Eye exam: Present: normal appearance, PERRL, EOMI. Absent: scleral icterus, conjunctival injection, periorbital swelling ENT exam: Present: normal exam, mucous membranes moist Neck exam: Present: normal inspection. Absent: tenderness, meningismus, lymphadenopathy Respiratory exam: Present: normal lung sounds bilaterally. Absent: respiratory distress, wheezes, rales, rhonchi, stridor Cardiovascular Exam: Present: regular rate, normal rhythm, normal heart sounds. Absent: systolic murmur, diastolic murmur, rubs, gallop, clicks GI/Abdominal exam: Present: soft, normal bowel sounds. Absent: distended, tenderness, guarding, rebound, rigid Extremities exam: Present: normal inspection, full ROM, normal capillary refill. Absent: tenderness, pedal edema, joint swelling, calf tenderness Back exam: Present: normal inspection Neurological exam: Present: alert, oriented X3, CN II-XII intact Psychiatric exam: Present: normal affect, normal mood Skin exam: Present: warm, dry, intact, normal color. Absent: rash Course Vital Signs 05/24/20 22:23 Temperature 98.0 F Pulse Rate 74 Respiratory 20 Rate Blood Pressure 137/82 O2 Sat by Pulse 98 Oximetry - Reevaluation(s) Reevaluation #1: Medical record is reviewed Patient symptoms are improved here in the ER Patient informed results and questions have been answered Patient family feel comfortable for discharge Medical Decision Making - Medical Decision Making 59 female status post fall patient does have CT brain C-spine negative for traumatic injury. Patient can be discharged home - Radiology Data Radiology results: report reviewed (CT brain C-spine and facial bones x-rays of chest and pelvis are negative for traumatic injury), image reviewed Disposition Clinical Impression: Fall, Head injury Disposition: HOME SELF-CARE Condition: Good Instructions (If sedation given, give patient instructions): Fall Prevention for Older Adults (ED), Head Injury (ED) Prescriptions: HYDROcodone/APAP 5-325MG [Johnston 5-325] 1 tab PO Q6HR PRN 3 Days #12 tab PRN Reason: Pain Is patient prescribed a controlled substance at d/c from ED?: No Referrals: Dolly Holguin DO [Primary Care Provider] - 1-2 days
== END 2020-05-25 00:43 | disposition home or self-care (01) ==
LOC: EC 22:22
DX: S09.90XA Unspecified injury of head, initial encounter (principal); E78.5 Hyperlipidemia, unspecified; M19.90 Unspecified osteoarthritis, unspecified site; F17.200 Nicotine dependence, unspecified, uncomplicated; Z79.899 Other long term (current) drug therapy; Z79.1 Long term (current) use of non-steroidal anti-inflammatories (NSAID); Z86.14 Personal history of Methicillin resistant Staphylococcus aureus infection; Z90.710 Acquired absence of both cervix and uterus; Z96.612 Presence of left artificial shoulder joint; W01.0XXA Fall on same level from slipping, tripping and stumbling without subsequent striking against object, initial encounter; Y92.89 Other specified places as the place of occurrence of the external cause
CPT/HCPCS: 70450; 70486; 71045; 72020; 72125; 72170; 99284

== ENCOUNTER → 2020-12-30 | Outpatient (CLI) | payer OTHER ==
--- NOTE | 2020-12-30 12:31 | MM ---
Reason for exam: screening (asymptomatic). Last mammogram was performed 1 year and 1 month ago. History: Patient is postmenopausal. Family history of breast cancer in maternal cousin at age 50, breast cancer in maternal aunt, and breast cancer in aunt. Benign excisional biopsy of the right breast, 2006. Took hormonal contraceptives for 20 years. Took estrogen for 7 years. Physical Findings: A clinical breast exam by your physician is recommended on an annual basis and results should be correlated with mammographic findings. MG 3D Screening Mammo W/Cad Bilateral CC and MLO view(s) were taken. Prior study comparison: December 07, 2019, bilateral MG 3d screening mammo w/cad. July 27, 2018, bilateral MG 3d screening mammo w/cad. June 14, 2017, bilateral MG 3d screening mammo w/cad. There are scattered fibroglandular densities. There are benign appearing vascular calcifications bilaterally. Previous mammotome biopsy in the right breast. There is no discrete abnormality. ASSESSMENT: Benign, BI-RAD 2 RECOMMENDATION: Routine screening mammogram of both breasts in 1 year. Consider surgical consultation of the right breast, nipple changes, may need punch biopsy. Manage on a clinical basis with regard to right nipple changes.
== END | disposition home or self-care (01) ==
LOC: RADMAMWWP 09:41
PROVIDERS: ATTEND Obstetrics & Gynecology
DX: Z12.31 Encounter for screening mammogram for malignant neoplasm of breast (principal); Z80.3 Family history of malignant neoplasm of breast
CPT/HCPCS: 77063; 77067

== ENCOUNTER 2021-07-17 08:09 | Day surgery (SDC) | payer OTHER ==
[2021-07-16 09:09] VITALS: BMI 20.7
[2021-07-17 08:37] VITALS: TEMP 97.9
[2021-07-17] MEDS ORDERED: LIDOCAINE 1% INJ 10MG/ML (20 ML MDV) ONE (08:59)
[2021-07-17] MEDS ORDERED: PROPOFOL 10 MG/ML 20 ML VIAL IV ONE (08:59)
--- NOTE | 2021-07-17 09:15 | P.PCN ---
Date of Procedure: 07/17/21 Procedure(s) Performed: BRIEF HISTORY: Patient is a 60-year-old pleasant white female scheduled for an elective colonoscopy as a part of evaluation of intermittent rectal bleeding for the last 6 months duration. She has bleeding 2-3 times a week. Denies any significant change in bowel habits. PROCEDURE PERFORMED: Colonoscopy. PREOPERATIVE DIAGNOSIS: Intermittent rectal bleeding of 6 months duration. IV sedation per Anesthesia. PROCEDURE: After informed consent was obtained, the patient, was brought into the endoscopy unit. IV sedation was administered by Anesthesia under continuous monitoring. Digital rectal examination was normal. Initially the Olympus CF-160 flexible video colonoscope was then inserted in the rectum, gradually advanced into the cecum without any difficulty. Careful examination was performed as the scope was gradually being withdrawn. Ileocecal valve and the appendiceal orifice were visualized and appeared normal. Prep was excellent. Mucosa of the cecum, ascending colon, transverse colon, descending colon, sigmoid colon, and rectum appeared normal. Retroflexion was performed in the rectum and small internal hemorrhoids were seen. The patient tolerated the procedure well. IMPRESSION: Normal-appearing colon from rectum to cecum no evidence of colorectal neoplasia. Small internal hemorrhoids. RECOMMENDATIONS: Findings of this examination were discussed with the patient as well as a family. She was advised to have a repeat screening colonoscopy in 10 years. Recommend a high-fiber diet and fiber supplements a regular basis and avoid straining and constipation..
[2021-07-17 09:40] VITALS: BP 111/72; PULSE 72; RESP 14
== END 2021-07-17 09:54 | disposition home or self-care (01) ==
LOC: ORWHC2ENDO 08:09
PROVIDERS: ATTEND Internal Medicine Gastroenterology
DX: K62.5 Hemorrhage of anus and rectum (principal); K64.8 Other hemorrhoids; J45.909 Unspecified asthma, uncomplicated; F17.200 Nicotine dependence, unspecified, uncomplicated; Z79.899 Other long term (current) drug therapy
CPT/HCPCS: 45378; J2001; J2704

== ENCOUNTER → 2021-09-03 | Outpatient (CLI) | payer OTHER ==
--- NOTE | 2021-09-03 10:04 | CT ---
EXAMINATION TYPE: CT chest w con DATE OF EXAM: 09/03/2021 COMPARISON: CT dated 06/08/2013 HISTORY: Shortness of Breath CT DLP: 142.9 mGycm Automated exposure control for dose reduction was used. TECHNIQUE: CT scan of the chest is performed with IV Contrast, patient injected with 70 mL of Isovue 300. FINDINGS: LUNGS: Mild bilateral apical pulmonary fibrotic changes. 3 mm nodule is seen in the right lung apex, stable. Other scattered smaller pulmonary nodules, all stable. Thin linear atelectasis seen in the ri ght lung base. Patent trachea and main bronchi. No pleural effusion. MEDIASTINUM: There are no greater than 1 cm hilar or mediastinal lymph nodes. No cardiomegaly. Patent major mediastinal vessels. No pericardial effusion is seen. OTHER: Grossly unremarkable upper abdomen. No aggressive bone lesion. IMPRESSION: Mild nonspecific pulmonary changes as described above. No suspicious lung lesion or signs of intersti tial lung disease. Incidental findings as described above.
== END | disposition home or self-care (01) ==
LOC: RADCTMAIN 07:48
PROVIDERS: ATTEND Family Medicine
DX: R06.02 Shortness of breath (principal)
CPT/HCPCS: 71260; Q9967

== ENCOUNTER → 2021-10-19 | Outpatient (CLI) | payer OTHER ==
--- NOTE | 2021-10-19 09:13 | CT ---
EXAMINATION TYPE: CT abdomen pelvis wo con DATE OF EXAM: 10/19/2021 COMPARISON: 02/06/2018 HISTORY: 61-year-old female Abdominal pain and bloating CT DLP: 736 mGycm. Automated exposure control for dose reduction was used. TECHNIQUE: Contiguous axial scanning of the abdomen and pelvis without IV contrast. Coronal and sagit patrick reconstructions performed. FINDINGS: Heart normal size without pericardial effusion. Strandy atelectasis anterior lung bases. No pleural e ffusion. Small hiatal hernia. Tiny 5 mm hypodensity right hepatic dome corresponding to a hypervascular focus on 2018 CT suggesting a flash filling hemangioma. Otherwise, noncontrast appearance of the liver, gallbladder, adrenal glands, kidneys, and spleen show no gross inability. Either prominent peripancreatic blood vessels are mild fat stranding about the body and tail of the p ancreas, axial image 16 and 18. No dilated small bowel, free fluid, or free air. No mesenteric or retroperitoneal lymphadenopathy. Normal appendix. Oral contrast progressed to the mid transverse colon. Mild left-sided colonic divert iculosis. Mild overall stool burden. No pericolonic inflammatory change. Bladder wall thickening. Uterus surgically absent. Ovaries not well seen, probably a small, postmenop ausal or surgically absent. This can be correlated clinically. No abnormal fluid collection in the pe lvis or pelvic lymphadenopathy. Bones: Left hip total arthroplasty. Degenerative grade 1 retrolisthesis L2-L5 levels. IMPRESSION: 1. There are either some prominent peripancreatic blood vessels versus mild inflammatory fat strandi ng. Correlate with amylase and lipase levels to exclude mild acute interstitial pancreatitis. 2. Small hiatal hernia. Some minimal left-sided clonic diverticulosis. Circumferential bladder wall thickening may be chronic for the patient. Correlate with symptoms and urinalysis to exclude cystitis .
== END | disposition home or self-care (01) ==
LOC: RADCTMAIN 06:59
PROVIDERS: ATTEND Family Medicine
DX: F10.10 Alcohol abuse, uncomplicated (principal); R79.89 Other specified abnormal findings of blood chemistry; K44.9 Diaphragmatic hernia without obstruction or gangrene; K57.30 Diverticulosis of large intestine without perforation or abscess without bleeding
CPT/HCPCS: 74176; Q9967

== ENCOUNTER → 2021-11-02 | Outpatient (CLI) | payer OTHER ==
--- NOTE | 2021-11-02 08:56 | CT ---
INDICATION: Patient age:Female; 61 years old; Reason for study: R91.8 OTHER NONSPECIFIC ABNORMAL FINDING OF LUNG; COMPARISON: CT chest 09/03/2021, CT abdomen pelvis 10/19/2021. TECHNIQUE: Multiple thin axial images were obtained through the chest at selected intervals. Prone and supine in spiratory images were submitted for review. Please note that due to interval acquisition images as de fined by high-resolution CT protocol the entire lung parenchyma is not evaluated, therefore small nod ular densities may not be visualized. Evaluation of vascular structures, viscera and lymphatics is l imited due to lack of intravenous contrast administration. One or more CT dose reduction strategies w ere utilized during this examination. Total DLP 369 mGycm. FINDINGS: LUNGS: Mild apical pleural-parenchymal scarring. There is no evidence of interstitial thickening, sig nificant groundglass opacity, honeycombing or architectural distortion in the lungs. No bronchiectasi s. No significant expiratory air trapping. No acute area of infiltrative or consolidative change. LARGE AIRWAYS: Central airways are patent. PLEURA: No pleural effusion or thickening. HEART AND PERICARDIUM: Heart is normal in size. There is no pericardial effusion. No significant ger nary artery calcifications. MEDIASTINUM AND DENIS: No mediastinal or hilar lymphadenopathy or soft tissue mass. VESSELS: The thoracic aorta is normal in course and caliber. CHEST WALL AND DIAPHRAGM: Normal. LOWER NECK: Normal. UPPER ABDOMEN: Unremarkable. MUSCULOSKELETAL: No acute fracture. IMPRESSION: No CT evidence of interstitial lung disease. No suspicious lung lesion.
== END | disposition home or self-care (01) ==
LOC: RADCTMAIN 07:58
PROVIDERS: ATTEND Internal Medicine Critical Care Medicine
DX: R91.8 Other nonspecific abnormal finding of lung field (principal)
CPT/HCPCS: 71250

== ENCOUNTER → 2021-12-24 | Outpatient (CLI) | payer OTHER ==
--- NOTE | 2021-12-24 11:16 | MR ---
EXAMINATION TYPE: MR lumbar spine wo con DATE OF EXAM: 12/24/2021 COMPARISON: 01/13/2016 HISTORY: Low back pain that radiates down left and right leg. TECHNIQUE: T1 and T2 axial and sagittal images of the lumbar spine are submitted. FINDINGS: There is no abnormal signal seen within the visualized spinal cord or paraspinal soft tissu es. At L1-2 there is no disc herniation or canal stenosis. No foraminal encroachment. Nerve root sleeve d iverticulum on the right incidentally noted. At L2-3 there is an annular tear now noted. No disc herniation or canal stenosis. No foraminal encroa chment. At L3-4 there is no disc herniation, canal stenosis or foraminal encroachment. Small bilateral nerve root sleeve diverticulum noted. Mild broad-based disc bulging. At L4-5 there is mild to moderate facet arthropathy. Mild bilateral neural foraminal encroachment gre ater on the left. Mild circumferential disc bulging but no canal stenosis. Bulging greater laterally to the left. At L5-S1 there is no disc herniation or canal stenosis. Broad-based central disc bulging. Bulging sli ghtly greater to left with mild foraminal encroachment. 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 IMPRESSION: 1. Disc bulging L5-S1 with no canal stenosis and mild left foraminal encroachment. Findings stable. 2. Mild bilateral foraminal encroachment. 3. Mild circumferential disc bulging L4-L5 with no nerve root impingement. Findings stable. 4. Mild central disc bulging L3-L4 is new from prior exam with minimal mass effect upon the thecal sa c but no evidence of canal stenosis..
== END | disposition home or self-care (01) ==
LOC: RADMRIMAIN 08:39
PROVIDERS: ATTEND Orthopaedic Surgery
DX: M54.16 Radiculopathy, lumbar region (principal)
CPT/HCPCS: 72148

== ENCOUNTER → 2021-12-31 | Outpatient (CLI) | payer OTHER ==
--- NOTE | 2021-12-31 15:50 | MM ---
Reason for Exam: Screening (asymptomatic). Last screening mammogram was performed 12 month(s) ago. Patient History: Menarche at age 13. First Full-Term at age 20. Hysterectomy at age 42. Postmenopausal. Patient used Estrogen for 7 years. Currently using Progesterone, for 6 months. Patient used Hormonal Contraceptives for 20 years. 2007, Benign Excisional Biopsy on the right side. Maternal cousin had breast cancer, age 50. Maternal aunt had breast cancer, age 60. Maternal aunt had breast cancer, age 55. Maternal cousin had breast cancer. Risk Values: Terri 5 year model risk: 1.2%. NCI Lifetime model risk: 6.3%. Prior Study Comparison: 07/27/2018 Bilateral Screening Mammogram, [facility]. 12/07/2019 Bilateral Screening Mammogram, [facility]. 12/30/2020 Bilateral Screening Mammogram, [facility]. Tissue Density: There are scattered fibroglandular densities. Findings: Analyzed By CAD. There is no suspicious group of microcalcifications or new suspicious mass in either breast. Biopsy clip demonstrated within the right breast. Vascular calcifications within both breasts. No significant change from prior examinations. Overall Assessment: Benign, BI-RAD 2 Management: Screening Mammogram of both breasts in 1 year. A clinical breast exam by your physician is recommended on an annual basis and results should be correlated with mammographic findings. Electronically signed and approved by: Kehinde Prater D.O.
== END | disposition home or self-care (01) ==
LOC: RADMAMWWP 09:37
PROVIDERS: ATTEND Obstetrics & Gynecology
DX: Z12.31 Encounter for screening mammogram for malignant neoplasm of breast (principal)
CPT/HCPCS: 77063; 77067

== ENCOUNTER → 2022-03-06 | Outpatient (CLI) | payer OTHER ==
--- NOTE | 2022-03-06 09:04 | CT ---
EXAMINATION TYPE: CT abdomen pelvis wo con DATE OF EXAM: 03/06/2022 COMPARISON: 10/19/2021 HISTORY: abd pain CT DLP: 316.6 mGycm Examination of the solid and hollow viscera is limited given the lack of contrast. FINDINGS: LUNG BASES: No evidence for nodule. No evidence for infiltrate. Small hiatal hernia noted. LIVER/GB: The gallbladder is unremarkable. No space-occupying hepatic lesion. PANCREAS: No pancreatic mass identified. No inflammatory process seen. SPLEEN: No evidence for splenomegaly. No intrasplenic lesions seen. ADRENALS: No adrenal nodules identified. No evidence for thickening. KIDNEYS: No evidence for renal mass. No nephrolithiasis. No hydronephrosis. BOWEL: Appendix has a normal appearance. No evidence of bowel obstruction. No inflammatory process. Lymph nodes: No evidence for adenopathy greater than 1 cm. Abdominal aorta: Atheromatous changes seen. No evidence for aneurysm. Genital organs: No significant abnormality. Other: Left hip prosthesis noted to be in place. IMPRESSION: 1. No significant abnormality to account for the patient's symptoms.
== END | disposition home or self-care (01) ==
LOC: RADCTMAIN 07:01
PROVIDERS: ATTEND Family Medicine
DX: K57.92 Diverticulitis of intestine, part unspecified, without perforation or abscess without bleeding (principal)
CPT/HCPCS: 74176

== ENCOUNTER → 2023-01-03 | Outpatient (CLI) | payer BC ==
--- NOTE | 2023-01-06 14:32 | MM ---
Reason for Exam: Screening (asymptomatic). Last screening mammogram was performed 12 month(s) ago. Patient History: Menarche at age 13. First Full-Term at age 20. Hysterectomy at age 42. Postmenopausal. Patient has history of breast feeding. Patient used Estrogen for 7 years. Currently using Progesterone, for 6 months. Patient used Hormonal Contraceptives for 20 years. 2006, Benign Excisional Biopsy on the right side. Maternal cousin had breast cancer, age 50. Maternal aunt had breast cancer, age 60. Maternal aunt had breast cancer, age 55. Maternal cousin had breast cancer. Risk Values: Terri 5 year model risk: 1.3%. NCI Lifetime model risk: 6.1%. Prior Study Comparison: 12/07/2019 Bilateral Screening Mammogram, [facility]. 12/30/2020 Bilateral Screening Mammogram, [facility]. 12/31/2021 Bilateral MG 3D screening mammo w/cad, [facility]. Tissue Density: The breast tissue is heterogeneously dense. This may lower the sensitivity of mammography. Findings: Analyzed By CAD. There is no suspicious group of microcalcifications or new suspicious mass in either breast. Benign calcifications within both breasts. Biopsy clip within the right breast. Overall Assessment: Benign, BI-RAD 2 Management: Screening Mammogram of both breasts in 1 year. A clinical breast exam by your physician is recommended on an annual basis and results should be correlated with mammographic findings. Note on Terri scores and lifetime risk: 1. A Terri score greater than 3% is considered moderate risk. If this is the case, consider specialist referral to assess eligibility for a risk reducing agent. If overall lifetime risk for the development of breast cancer is 20% or higher, the patient may qualify for future screening with alternating mammogram and breast MRI. Electronically signed and approved by: Kehinde Prater D.O.
== END | disposition home or self-care (01) ==
LOC: RADMAMWWP 09:35
PROVIDERS: ATTEND Family Medicine
DX: Z12.31 Encounter for screening mammogram for malignant neoplasm of breast (principal); Z78.0 Asymptomatic menopausal state; Z80.3 Family history of malignant neoplasm of breast
CPT/HCPCS: 77063; 77067

== ENCOUNTER → 2023-07-09 | Outpatient (CLI) | payer OTHER, BC ==
--- NOTE | 2023-07-09 13:16 | XR ---
EXAMINATION TYPE: XR lumbar spine with bend/flex DATE OF EXAM: 07/09/2023 8:28 AM CLINICAL INDICATION:Female, 62 years old with history of M47.26, M43.16 XR L SPINE; [facility] COMPARISON: 05/24/2020 TECHNIQUE: XR lumbar spine with bend/flex - Frontal, lateral and coned in L5-S1 lateral views of the spine. FINDINGS: Post surgical changes at L4 and L5. Hardware appears intact. No evidence of any acute osseo us pathology. No evidence of loss of vertebral body height is seen. There is normal alignment of the lumbar vertebral bodies. Mild scattered disc space narrowing. Multilevel marginal osteophyte formati on throughout the visualized spine. There is facet joint arthropathy throughout the spine. Scattered at least mild neural foraminal stenosis. IMPRESSION: 1. No acute fracture. 2. Mild multilevel disc degeneration. 3. Post surgical changes with hardware intact.
== END | disposition home or self-care (01) ==
LOC: RADXRMAIN 08:03
PROVIDERS: ATTEND Neurological Surgery
DX: M51.36 Other intervertebral disc degeneration, lumbar region (principal); M47.26 Other spondylosis with radiculopathy, lumbar region; M43.16 Spondylolisthesis, lumbar region
CPT/HCPCS: 72114

== ENCOUNTER → 2023-09-12 | Outpatient (CLI) | payer OTHER, BC ==
--- NOTE | 2023-09-12 15:42 | MR ---
EXAMINATION TYPE: MR marbin/titi wo con DATE OF EXAM: 09/12/2023 7:16 AM COMPARISON: 12/24/2021 HISTORY: Severe pain mid/lower back, recent injury. Hx surgery L4-L5. Multiplanar MultiSpin echo imaging of the thoracic spine was performed. Disc spaces: No evidence for herniation protrusion or significant degenerative disc disease. Spinal canal: No evidence for canal stenosis. No intrinsic or extrinsic lesion. Thoracic spinal cord: Thoracic spinal cord is of normal caliber and signal. Paraspinal soft tissues: No evidence for paraspinal mass. No destructive lesions seen. Vertebral segments: No evidence for fracture or bony lesion. IMPRESSION: Negative study EXAMINATION TYPE: MR marbin/titi wo con DATE OF EXAM: 09/12/2023 7:16 AM COMPARISON: NONE HISTORY: Severe pain mid/lower back, recent injury. Hx surgery L4-L5. Multiplanar, MultiSpin echo imaging of the lumbar spine was performed. L1-L2: Mild disc desiccation noted with mild posterior disc bulge. No herniation or protrusion. No ca nal stenosis is present. Foramina are patent bilaterally. L2-L3: Mild disc desiccation noted with mild posterior disc bulge. No herniation or protrusion. No ca nal stenosis is present. Foramina are patent bilaterally. L3-L4: Normal disc appearance without desiccation. No herniation, protrusion or disc bulging. No ca nal stenosis is present. Foramina are patent bilaterally. L4-L5: Postoperative changes of lumbar laminectomy and pedicular screws. Postoperative alignment is w ithin normal limits. L5-S1: Mild disc desiccation with posterior disc bulge. No evidence for disc herniation or protrusion . No central stenosis. No evidence for foraminal encroachment. Lumbar segments are intact. No paraspinal masses are identified. Conus medullaris has a normal appe arance. IMPRESSION: 1. Degenerative disc disease and disc bulging as noted. 2. Postoperative changes at L4-5.
== END | disposition home or self-care (01) ==
LOC: RADMRIMAIN 06:05
PROVIDERS: ATTEND Neurological Surgery
DX: M51.36 Other intervertebral disc degeneration, lumbar region (principal); M54.14 Radiculopathy, thoracic region
CPT/HCPCS: 72146; 72148

== ENCOUNTER → 2023-10-07 | Outpatient (CLI) | payer OTHER, BC ==
[2023-10-07 15:52] LABS: HCT 38.8 % (37.2-46.3); HGB 12.6 g/dL (12.0-15.0); MCH 31.3 pg (27.0-32.0); MCHC 32.5 g/dL (32.0-37.0); MCV 96.5 FL (80.0-97.0); Mean Platelet Volume 9.5 FL (9.5-12.2); NRBC Per 100 WBC 0 X 10*3/uL (0.00-0.01); Platelet Count 402 X 10*3/uL (140-440); RBC 4.02 X 10*6/uL (4.10-5.20); RDW 12.8 % (11.5-14.5); WBC 5.29 X 10*3/uL (4.50-10.00)
[2023-10-07 15:56] LABS: % Iron Saturation 26.85 (12.00-45.00); ALT 13 U/L (8-44); AST 20 U/L (13-35); Albumin 4.4 g/dL (3.8-4.9); Albumin/Globulin Ratio 1.76 Ratio (1.60-3.17); Alkaline Phosphatase 185 U/L (41-126); BUN/Creat Ratio 11.62 Ratio (12.00-20.00); Blood Urea Nitrogen 9.3 mg/dL (9.0-27.0); Calcium 9.5 mg/dL (8.7-10.3); Chloride 95 mmol/L (96-109); Ferritin 71.6 ng/mL (10.0-291.0); Globulin 2.5 g/dL (1.6-3.3); Glucose 78 mg/dL (70-110); Iron 105 UG/DL (50-170); Phosphorus 4.1 mg/dL (2.4-5.1); Potassium 4.7 mmol/L (3.5-5.5); Sodium 134 mmol/L (135-145); Total Bilirubin 0.3 mg/dL (0.3-1.2); Total Iron Binding Capacity 391 UG/DL (228-460); Total Protein 6.9 g/dL (6.2-8.2); Uric Acid 4.5 mg/dL (2.9-7.7)
== END | disposition home or self-care (01) ==
LOC: LABWHC1 10:11
PROVIDERS: ATTEND Internal Medicine
DX: N18.31 Chronic kidney disease, stage 3a (principal)
CPT/HCPCS: 36415; 80053; 82306; 82728; 83540; 83550; 83970; 84100; 84550; 85027

== ENCOUNTER → 2023-10-10 | Outpatient (CLI) | payer OTHER, BC ==
[2023-10-10 16:07] LABS: Appearance,Urine Clear (Clear); Bilirubin,Urine Negative (Negative); Blood,Urine Negative (Negative); Color,Urine Yellow (Yellow); Ketones,Urine Trace (Negative); Nitrite,Urine Negative (Negative); Specific Gravity,Urine 1.016 (1.001-1.030); Urobilinogen,Urine 0.2 E.U./DL
[2023-10-10 18:19] LABS: Microalbumin Creatinine Ratio <13 mg/g Cr (0-30); Urine Creatinine 90.1 mg/dL (28.0-217.0)
== END | disposition home or self-care (01) ==
LOC: LABWHC1 12:04
PROVIDERS: ATTEND Internal Medicine
DX: N18.31 Chronic kidney disease, stage 3a (principal)
CPT/HCPCS: 81003; 82043; 82570

== ENCOUNTER → 2024-01-05 | Outpatient (CLI) | payer OTHER, BC ==
--- NOTE | 2024-01-06 19:06 | MM ---
Reason for Exam: Screening (asymptomatic). Last screening mammogram was performed 12 month(s) ago. Patient History: Menarche at age 13. First Full-Term at age 20. Hysterectomy at age 42. Postmenopausal. Patient has history of breast feeding. Patient used Estrogen for 7 years. Currently using Progesterone, for 6 months. Patient used Hormonal Contraceptives for 20 years. 2006, Benign Excisional Biopsy on the right side. Maternal cousin had breast cancer, age 50. Maternal aunt had breast cancer, age 60. Maternal aunt had breast cancer, age 55. Maternal cousin had breast cancer. Risk Values: Terri 5 year model risk: 1.3%. NCI Lifetime model risk: 5.9%. Prior Study Comparison: 12/30/2020 Bilateral Screening Mammogram, [facility]. 12/31/2021 Bilateral MG 3D screening mammo w/cad, [facility]. 01/03/2023 Bilateral MG 3D screening mammo w/cad, [facility]. Tissue Density: There are scattered areas of fibroglandular density. Findings: Analyzed By CAD. Benign bilateral vascular calcifications. Microclip right breast from prior biopsy. Areas of asymmetric density remain unchanged. There is no suspicious group of microcalcifications or new suspicious mass in either breast. Overall Assessment: Benign, BI-RAD 2 Management: Screening Mammogram of both breasts in 1 year. . Patient should continue monthly self-breast exams. A clinical breast exam by your physician is recommended on an annual basis. This exam should not preclude additional follow-up of suspicious palpable abnormalities. Note on Terri scores and lifetime risk: 1. A Terri score greater than 3% is considered moderate risk. If this is the case, consider specialist referral to assess eligibility for a risk reducing agent. 2. If overall lifetime risk for the development of breast cancer is 20% or higher, the patient may qualify for future screening with alternating mammogram and breast MRI. [facility], , 01/06/2024 7:03 PM. Electronically signed and approved by: Dung Atkinson M.D. Radiologist
== END | disposition home or self-care (01) ==
LOC: RADMAMWWP 10:54
PROVIDERS: ATTEND Family Medicine
DX: Z12.31 Encounter for screening mammogram for malignant neoplasm of breast
CPT/HCPCS: 77063; 77067

== ENCOUNTER 2024-06-26 15:20 | Emergency (ER) | payer BC, MEDICARE, OTHER ==
[2024-06-26] MEDS: HYDROcodone/APAP 5-325MG 1 EACH TAB PO STA (16:11)
[2024-06-26] MEDS: ORPHENADRINE 30 MG/ML 2 ML VIAL IM STA (16:13)
--- NOTE | 2024-06-26 16:41 | ED ---
Back Pain HPI - General Chief Complaint: Back Pain/Injury Stated Complaint: Back Injury Time Seen by Provider: 06/26/24 16:41 Source: patient, family, RN notes reviewed Mode of arrival: ambulatory Limitations: no limitations - History of Present Illness Initial Comments: 63-year-old female presenting to the ER for evaluation of back pain. Patient states 1 week ago she was at the [employer] and recausticizing [employer] taking her dog for a checkup. She states she was attempting to pay the fee when her dog lunged at another dog and attempts to play. She states she felt a pop in her lower back at that time. Since then she has been having severe pain to her lumbar spine and bilateral flanks. Patient is taken [id number] ibuprofen and Tylenol without relief. Patient does report a history of L4-L5 lumbar fusion completed at [facility] with Dr. Kennedy. Patient was seen at urgent care and had x-rays completed showing an age-indeterminate L3 fracture. Patient was given IM dexamethasone and Toradol and sent to the emergency department for further evaluation and treatment. Patient denies any saddle paresthesias, bowel or bladder retention or incontinence, fevers or history of IV drug abuse. Patient does report a mild tingling sensation to bilateral hips. Patient denies any other injuries or complaints at this time. - Related Data Home Medications Medication Instructions Recorded Confirmed Atorvastatin [Lipitor] 20 mg PO HS 06/30/17 07/16/21 DULoxetine HCL [Cymbalta] 60 mg PO DAILY 06/30/17 07/16/21 Montelukast Sodium [Singulair] 10 mg PO HS 06/30/17 07/16/21 calcitrioL [Rocaltrol] 0.25 mcg PO MOWEFR 08/16/18 07/16/21 estradioL [Estradiol] 0.5 mg PO DAILY 12/25/18 07/16/21 Celecoxib [CeleBREX] 200 mg PO DAILY 07/16/21 07/16/21 Cholecalciferol [Vitamin D3 (25 50 mcg PO DAILY 07/16/21 07/16/21 Mcg = 1000 Iu)] Ibuprofen [Motrin] 800 mg PO Q8H PRN 07/16/21 07/16/21 Olodaterol HCl [Striverdi Respimat] 3 spray INHALATION DAILY 07/16/21 07/16/21 Progesterone, Micronized 100 mg PO HS 07/16/21 07/16/21 [Progesterone] Previous Rx's Medication Instructions Recorded Albuterol Nebulized [Ventolin 2.5 mg INHALATION Q4H PRN #25 nebu 12/25/18 Nebulized] HYDROcodone/APAP 7.5-325MG [[place] 1 tab PO Q4-6H PRN #12 tab 06/26/24 7.5-325] Lidocaine 4% Patch 1 patch TOPICAL DAILY #30 patch 06/26/24 Allergies Allergy/AdvReac Type Severity Reaction Status Date / Time No Known Allergies Allergy Verified 07/17/21 08:31 Review of Systems ROS Statement: Those systems with pertinent positive or pertinent negative responses have been documented in the HPI. ROS Other: All systems not noted in ROS Statement are negative. Past Medical History Past Medical History: Asthma, Hyperlipidemia, Musculoskeletal Disorder, Osteoarthritis (OA), Renal Disease Additional Past Medical History / Comment(s): Hx osteopenia. Stage 3 kidney disease. Hx adrenal insufficiency. Bulging discs in back; Neuropathy BLE, hands. Lymphedema legs occ. c/o rectal bleeding History of Any Multi-Drug Resistant Organisms: MRSA Date of last positivie culture/infection: 2013 and rsv pneumonia/ chronic bronchitis MDRO Source:: lungs Past Surgical History: Back Surgery, Breast Surgery, Hysterectomy, Joint Replacement, Orthopedic Surgery Additional Past Surgical History / Comment(s): Hx bilat arthroscopic knees x 2, left hip repair x 2, and left shoulder. Bilat thumbs replaced, & CTR. Hx breast biopsy rt and lumpectomy-negative, LT [place], Colonoscopy. spinal fusion Past Anesthesia/Blood Transfusion Reactions: Motion Sickness, Postoperative Nausea & Vomiting (PONV) Past Psychological History: No Psychological Hx Reported Smoking Status: Former smoker Past Alcohol Use History: Occasional Past Drug Use History: None Reported - Past Family History Father Family Medical History: Cancer Additional Family Medical History / Comment(s): prostate, lung cancers General Exam Limitations: no limitations General appearance: alert, in no apparent distress Neck exam: Present: normal inspection. Absent: tenderness, meningismus, lymphadenopathy Respiratory exam: Present: normal lung sounds bilaterally. Absent: respiratory distress, wheezes, rales, rhonchi, stridor Cardiovascular Exam: Present: regular rate, normal rhythm, normal heart sounds. Absent: systolic murmur, diastolic murmur, rubs, gallop, clicks Extremities exam: Present: normal inspection, full ROM, normal capillary refill (2+ DP and PT pulses), other (Strength: 5+ bilateral doriflexion/plantarflexion. 5+ hip adduction/abduction). Absent: tenderness, pedal edema, joint swelling, calf tenderness Back exam: Present: normal inspection, tenderness (L3-L5), other (limited active ROM given pain. Negative passive straight leg raise bilaterally) Neurological exam: Present: alert, oriented X3, CN II-XII intact Skin exam: Present: warm, dry, intact, normal color. Absent: rash Course Vital Signs 06/26/24 06/26/24 06/26/24 15:28 17:48 18:21 Temperature 98.8 F 98 F 98 F Pulse Rate 92 81 79 Respiratory 20 16 16 Rate Blood Pressure 130/87 150/90 160/92 O2 Sat by Pulse 98 100 99 Oximetry 06/26/24 19:08 Temperature 98.1 F Pulse Rate 72 Respiratory 16 Rate Blood Pressure 150/89 O2 Sat by Pulse 98 Oximetry - Reevaluation(s) Reevaluation #1: 06/26/24 18:[address] Echols, orthopedics. He advised on patient wearing LSO brace and limiting ambulation. He also reports close follow-up with either himself or surgeon. Medical Decision Making - Medical Decision Making Was pt. sent in by a medical professional or institution (, PADMINI, PRINTING PRESS MACHINE OPERATOR, urgent care, hospital, or care home...) When possible be specific @ -Patient sent by urgent care for further evaluation of back pain. Did you speak to anyone other than the patient for history (EMS, parent, family, police, friend...)? What history was obtained from this source @ -Patient's significant other, at bedside, aiding in HPI and past medical history. Did you review nursing and triage notes (agree or disagree)? Why? @ -I reviewed and agree with nursing and triage notes Were old charts reviewed (outside hosp., previous admission, EMS record, old EKG, old radiological studies, urgent care reports/EKG's, care home records)? Report findings @ -No old charts were reviewed Differential Diagnosis (chest pain, altered mental status, abdominal pain women, abdominal pain men, vaginal bleeding, weakness, fever, dyspnea, syncope, headache, dizziness, GI bleed, back pain, seizure, CVA, palpatations, mental health, musculoskeletal)? @ -Differential Back Pain:Strain, zoster, cauda equina syndrome, epidural abscess, vertebral osteomyelitis, discitis, fracture, subluxation, disc herniation, DJD, spinal stenosis, dissection, AAA, pancreatitis, peptic ulcer disease, pyelonephritis, kidney stone, this is not meant to be an all-inclusive list. EKG interpreted by me (3pts min.). @ -None done X-rays interpreted by me (1pt min.). @ -None done CT interpreted by me (1pt min.). @ -CT lumbar spine showing acute compression fracture of the superior endplate of L3 vertebral body with 25% height loss centrally. Fixation hardware at L4-L5 intact. U/S interpreted by me (1pt. min.). @ -None done What testing was considered but not performed or refused? (CT, X-rays, U/S, labs)? Why? @ -None What meds were considered but not given or refused? Why? @ -None Did you discuss the management of the patient with other professionals (professionals i.e. , PA, PRINTING PRESS MACHINE OPERATOR, lab, RT, psych nurse, social work supervisor, dump motor operator, teacher, health promotion officer, correctional case manager)? Give summary @ -No Was smoking cessation discussed for >3mins.? @ -No Was critical care preformed (if so, how long)? @ -No Were there social determinants of health that impacted care today? How? (Homelessness, low income, unemployed, alcoholism, drug addiction, transportation, low edu. Level, literacy, decrease access to med. care, snf, rehab)? @ -No Was there de-escalation of care discussed even if they declined (Discuss DNR or withdrawal of care, Hospice)? DNR status @ -No What co-morbidities impacted this encounter? (DM, HTN, Smoking, COPD, CAD, Cancer, CVA, ARF, Chemo, Hep., AIDS, mental health diagnosis, sleep apnea, morbi d obesity)? @ -Recent lumbar fusion Was patient admitted / discharged? Hospital course, mention meds given and route, prescriptions, significant lab abnormalities, going to OR and other pertinent info. @ -Discharge. 63-year-old female presenting to the ER for evaluation of back pain. There are no red flag symptoms indicative of cauda equina on exam. Patient is neurovascularly intact. There was focal tenderness noted to L3-5. Equal strength to bilateral lower extremity. As patient had x-rays completed at urgent care with abnormal findings CT lumbar spine was completed showing an acute compression fracture of the superior endplate of L3 vertebral body. Patient given symptomatic control in the emergency department with PO Norflex, norco and IM Dilaudid. Patient did receive IM Decadron and Toradol prior to arrival by urgent care. Given patient's recent surgical lumbar fusion case was discussed with Dr. Echols, orthopedics, who advised on LSO brace, limiting ambulation and to follow-up closely with himself or patient's surgeon. Upon reevaluation, patient resting comfortably on stretcher no signs of acute distress. Patient reporting improvement of pain. Patient will be discharged in stable condition and instructed to follow-up closely with orthopedic medical insurance coding specialist, referral given. [place] and lidocaine patches prescribed. Strict return parameters discussed. Patient discharged in stable condition. Patient verbally expressed understanding and agreement with care plan. Case discussed with ED attending, Dr. Holt. Undiagnosed new problem with uncertain prognosis? @ -No Drug Therapy requiring intensive monitoring for toxicity (Heparin, Nitro, Insulin, Cardizem)? @ -No Were any procedures done? @ -No Diagnosis/symptom? @ -Superior endplate fracture L3 Acute, or Chronic, or Acute on Chronic? @ -Acute Uncomplicated (without systemic symptoms) or Complicated (systemic symptoms)? @ -Uncomplicated Side effects of treatment? @ -No Exacerbation, Progression, or Severe Exacerbation? @ -No Poses a threat to life or bodily function? How? (Chest pain, [place], [place], pneumonia, PE, COPD, DKA, ARF, appy, cholecystitis, CVA, Diverticulitis, Homicidal, Suicidal, threat to staff... and all critical care pts) @ -No - Radiology Data Radiology results: report reviewed, image reviewed Disposition Clinical Impression: L3 vertebral fracture Disposition: HOME SELF-CARE Condition: Stable Instructions (If sedation given, give patient instructions): Vertebral Compression Fracture (ED) Additional Instructions: Wear LSO brace when ambulating. I recommend rest. Take [place] as prescribed for extreme pain. I also recommend alternating ibuprofen. Follow-up closely with surgeon. Return to the ER for any new or worsening concerns. Prescriptions: Lidocaine 4% Patch 1 patch TOPICAL DAILY #30 patch HYDROcodone/APAP 7.5-325MG [[place] 7.5-325] 1 tab PO Q4-6H PRN #12 tab PRN Reason: Pain Is patient prescribed a controlled substance at d/c from ED?: No Referrals: Wade Lisa MD [Primary Care Provider] - 1-2 days Desean Echols DO [Doctor of Osteopathic Medicine] - 1-2 days Time of Disposition: 18:50
[2024-06-26 17:49] VITALS: RESP 16
--- NOTE | 2024-06-26 17:59 | CT ---
EXAMINATION TYPE: CT lumbar spine wo con DATE OF EXAM: 06/26/2024 5:18 PM COMPARISON: 03/06/2022. CLINICAL INDICATION: Female, 63 years old with history of back pain;, back pain, possible L3 fx TECHNIQUE: Multiple axial images were obtained from the midportion of T11 through the sacroiliac lupe nts. Soft tissue and bone windows in coronal and sagittal planes were obtained and reviewed. Contrast used: mL of , (None, if empty). Oral contrast used: (None, if empty). CT DLP: 781.1 mGycm, Automated exposure control for dose reduction was used. FINDINGS: Alignment: There are 5 lumbar type vertebral bodies within normal alignment. Bone: New L3 superior endplate deformity with 25% height loss centrally no retropulsion. No significa nt spinal canal or neural foraminal stenosis. Fixation of L4-L5 with discectomy at L4-L5 present. Alfie dware appears intact. Discs: T12-L1: No spinal canal or neural foraminal stenosis is identified. L1-L2: No spinal canal or neural foraminal stenosis is identified. L2-L3: No spinal canal or neural foraminal stenosis is identified. L3-L4: No spinal canal or neural foraminal stenosis is identified. L4-L5: No spinal canal or neural foraminal stenosis is identified. L5-S1: No spinal canal or neural foraminal stenosis is identified. Other: None IMPRESSION: 1. Acute compression fracture of the Superior endplate of L3 vertebral body with 25% height loss saul trally. Further evaluation with MRI recommended findings new from 03/06/2022. 2. Fixation hardware at L4-L5 is intact. [facility], , 06/26/2024 5:56 PM
[2024-06-26] MEDS: HYDROmorphone 1 MG/ML 1 ML SYRINGE IM STA (18:22)
[2024-06-26 19:10] VITALS: BP 150/89; PULSE 72; TEMP 98.1
== END 2024-06-26 19:10 | disposition home or self-care (01) ==
LOC: EC 15:20
DX: S32.030A Wedge compression fracture of third lumbar vertebra, initial encounter for closed fracture (principal); Z87.891 Personal history of nicotine dependence; W54.8XXA Other contact with dog, initial encounter
CPT/HCPCS: 72131; 99284; 96372; J2360; J1171

== ENCOUNTER → 2024-07-03 | Outpatient (CLI) | payer BC ==
--- NOTE | 2024-07-04 18:34 | MR ---
EXAMINATION TYPE: MR lumbar spine wo con DATE OF EXAM: 07/03/2024 10:36 AM COMPARISON: 06/26/2024 CLINICAL INDICATION: Female, 63 years old with history of S32.030A WEDGE COMPRESSION FRACTURE OF THIR D LUMBAR, Low back pain, Fractured L3 due to injury, Abnormal CT lumbar, Hx of fusion L4/L5 done Mar 2023 TECHNIQUE: Multiplanar, multisequence images of the lumbar spine were acquired. IV Contrast: mL (None, if empty) FINDINGS: Cord ends at the L1-L2 level. L5-S1: No focal disc herniation or significant disc bulge. No spinal canal stenosis. Neural foramen are patent. L4-L5: Postsurgical changes are present. Pedicle screws are present with some magnetic susceptibility artifact causing some mild limitation. No focal disc herniation or significant disc bulge. No spina l canal stenosis. Neural foramen are patent. L3-L4: No focal disc herniation or significant disc bulge. No spinal canal stenosis. Neural foramen are patent. There is superior endplate compression deformity of L3. The signal within the L3 verteb ral body appears low on both T1 and T2-weighted sequences with increased signal on STIR imaging. Find ings can be compatible with an acute compression deformity. L2-L3: No focal disc herniation or significant disc bulge. No spinal canal stenosis. Neural foramen are patent. L1-L2: No focal disc herniation or significant disc bulge. No spinal canal stenosis. Neural foramen are patent. T12-L1: No focal disc herniation or significant disc bulge. No spinal canal stenosis. Neural forame n are patent. IMPRESSION: 1. Superior endplate changes at L3 can be acute. No posterior wall displacement or spinal canal steno sis evident at this level. 2. Postsurgical changes stable and L4-5. [facility], , 07/04/2024 6:31 PM
== END | disposition home or self-care (01) ==
LOC: RADMRIMAIN 09:32
PROVIDERS: ATTEND Family Medicine
DX: S32.030A Wedge compression fracture of third lumbar vertebra, initial encounter for closed fracture (principal); Z98.890 Other specified postprocedural states
CPT/HCPCS: 72148